=== PATIENT | female | born 1940 | race Caucasian/White ===

== ENCOUNTER → 2019-11-08 | Outpatient (CLI) | payer MEDICARE, OTHER ==
[2019-11-08 13:39] VITALS: BP 121/80; PULSE 94; RESP 16; TEMP 98.5
--- NOTE | 2019-11-08 13:45 | P.PN ---
Subjective Progress Note Date: 11/08/19 Principal diagnosis: Stage 1A left breast cancer Azalea is an 79-year-old white female seen in consultation for Jaleesa Sanchez who on routine screening mammogram performed was noted to have a 7 mm lesion in the upper inner quadrant of the left breast. No lesions of concern were identified in the right breast. The patient subsequently had an ultrasound performed which again confirmed a 7 mm lesion the 9 o'clock position of the left breast. 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 She does not feel any recent masses or nodules in either breast. She is complaining of any nipple discharge or skin change. She's not had any recent trauma or infection of the breast. Many years ago she had a right breast biopsy which was benign. Family history: 1. mother: breast cancer at 89, uterine cancer 2. maternal aunt: breast cancer 60's 3. patient: basal cell cancers resected face and arms 4. brother: basal cell cancer Hormonal History: menarche: 15 , first born at 19, breast fed: yes menopause: 52 BCP: none hormones: < 1 year Surgical History: 1. right breast surgery 2. Scoliosis patient has had multiple back surgeries and has rods in her back/ last 1 year ago May. Medical History: none Social History: smoke: none; used to smoke for 15 years, stopped in 1975 alcohol: occasional wine drugs: none - Constitutional Constitutional: Denies chills, Denies fever - EENT Comment: bilateral cataract surgery Eyes: denies blurred vision, denies pain Ears: deny: decreased hearing, tinnitus Ears, nose, mouth and throat: Denies headache, Denies sore throat - Breasts Breasts: bilateral: as per HPI - Cardiovascular Comment: mitral valve prolapse Cardiovascular: Denies chest pain, Denies shortness of breath - Respiratory Comment: asthma when young not now Respiratory: Denies cough, Denies 7 - Gastrointestinal Gastrointestinal: Denies abdominal pain, Denies diarrhea, Denies nausea, Denies vomiting - Genitourinary (Female) Genitourinary: Denies dysuria, Denies hematuria - Menstruation Menstruation: Reports postmenopausal - Musculoskeletal Comment: back pain, arthritis - Integumentary Comment: sees derrick boat captain, octavio cell canlouann in the past Integumentary: Reports rash - Neurological Neurological: Reports numbness, Denies weakness - Psychiatric Psychiatric: Denies anxiety, Denies depression - Endocrine Endocrine: Denies fatigue, Denies weight change - Hematologic/Lymphatic Comment: none - Allergic/Immunologic Allergic/Immunologic: Reports seasonal allergies Past Medical History History of Any Multi-Drug Resistant Organisms: None Reported Smoking Status: Former smoker Medications and Allergies Home Medications Medication Instructions Recorded Confirmed Type Cyclobenzaprine [Flexeril] 10 mg PO TID 08/02/19 08/02/19 History Etodolac [Lodine] 400 mg PO BID 08/02/19 08/02/19 History Gabapentin [Neurontin] 300 mg PO BID 08/02/19 08/02/19 History Lisinopril [Zestril] 10 mg PO DAILY 08/02/19 08/02/19 History Lovastatin [Mevacor] 20 mg PO HS 08/02/19 08/02/19 History traMADol HCL [Ultram] 50 mg PO Q6HR PRN 08/02/19 08/02/19 History Allergies Allergy/AdvReac Type Severity Reaction Status Date / Time No Known Allergies Allergy Unverified 08/02/19 14:27 Objective - Constitutional General appearance: Present: average body habitus - EENT Eyes: Present: EOMI ENT: Present: hearing grossly normal - Neck Neck: Present: normal ROM - Respiratory Respiratory: bilateral: CTA - Cardiovascular Rhythm: regular Heart sounds: normal: S1, S2 - Gastrointestinal General gastrointestinal: Present: normal bowel sounds, soft - Integumentary Integumentary: Present: normal turgor - Musculoskeletal Musculoskeletal: Present: gait normal - Psychiatric Psychiatric: Present: A&O x's 3 - Additional findings Additional findings: breast exam: BRA: 38 C Inspection: grade 2/3 ptosis, no nipple changes Palpation: right breast: No dominant masses or nodules of concern and multiple positional exam Right axilla: No adenopathy of concern Left breast: Multiple positional exam no dominant masses or nodules of concern Left axilla: No adenopathy of concern Assessment and Plan Assessment: impression: 1. left breast core biopsy stage 1 infiltrating ductal cancer 2. Arthritis/multiple prior back surgeries 3. Family history of breast cancer 4. Personal history of basal cell cancer 5. Scoliosis 6. Small punctate area of erythema inferior aspect of left breast going to follow up with derrick boat captain for this Plan: 1. Left breast needle localization lumpectomy, possible tissue transfer for hypoplastic procedure, possible mastopexy 2. [place] node injection, sentinel node biopsy, possible axillary node dissection left 3. Medical clearance Risks and benefits of surgery were discussed. The choice of lumpectomy versus mastectomy were discussed and the patient would prefer a lumpectomy. [place] node biopsy with possible axillary node dissection was discussed and risks and benefits of this were discussed as well. Risks include but are not limited to bleeding, infection, reaction to the anesthetic. If margins were to be positive or the correct area not completely excised this may necessitate further excision. The risk of having this done during the code 19 pandemic was also discussed the patient understands and wishes to proceed. We have discussed mastectomy plus or minus reconstruction and she is not interested. CC: Yusuf Sanchez encounter 30 minutes > 50% of time in planning and counselling Time with Patient: Greater than 30
== END | disposition home or self-care (01) ==
LOC: WWCWWP 12:58
PROVIDERS: ATTEND Surgery
DX: Z53.9 Procedure and treatment not carried out, unspecified reason (principal)

== ENCOUNTER → 2019-11-16 | Outpatient (CLI) | payer MEDICARE, OTHER | END | disposition home or self-care (01) | LOC: LABWHC1 10:35 | PROVIDERS: ATTEND Surgery | DX: Z11.59 Encounter for screening for other viral diseases (principal) | CPT/HCPCS: 87635 ==

== ENCOUNTER → 2019-11-20 | Day surgery (SDC) | payer MEDICARE, OTHER ==
[2019-11-15 10:37] VITALS: BMI 23.1
[~2019-11-20] MED LIST: ALPRAZolam 0.25 MG TAB PO ONE; DEXAMETHASONE SOD PHOSPHATE 10 MG/ML 1 ML VIAL IV ONE; HEPARIN SODIUM,PORCINE 5,000 UNIT/ML 1 ML VIAL SQ ONE; HYDROmorphone 0.5 MG/0.5 ML SYRINGE IVP ONE; LABETALOL SYRINGE 5 MG/ML IVP ONE; LACTATED RINGERS 1,000 ML IV ONE; LACTATED RINGERS 1,000 ML IV SCH; LIDOCAINE 1% (10MG/ML) FOR IV START INTRADERMA PRN; LIDOCAINE 1% INJ 10MG/ML (20 ML MDV) ONE; LIDOCAINE 1% INJ 10MG/ML (20 ML MDV) SQ ONE; METHYLENE BLUE 50 MG/10 ML AMPUL INJ ONE; MIDAZOLAM 2 MG/2 ML VIAL IV PRN; ONDANSETRON 4 MG/2 ML VIAL IVP ONE; PHENYLEPHRINE-0.9% NACL SYG 1 MG/10 ML SYRINGE ONE; PROPOFOL 10 MG/ML 20 ML VIAL IV ONE; Pre Op ABX Message 1 EACH MISC MISCELLANE ONE; SUCCINYLCHOLINE CHLORIDE 100 MG/5 ML SYR IV ONE; fentaNYL (PF) 50 MCG/ML 2 ML AMP IV PRN; fentaNYL (PF) 50 MCG/ML 2 ML AMP ONE
--- NOTE | 2019-11-20 14:18 | NM ---
EXAMINATION TYPE: NM sentinel node injection DATE OF EXAM: 11/20/2019 COMPARISON: NONE HISTORY: Left breast carcinoma TECHNIQUE AND FINDINGS: The procedure of sentinel lymph node injection was explained to the patient. The benefits, alternatives, and risks were discussed. An informed consent was then obtained. Overlying skin is cleaned with sterile alcohol. 480 uCi Tc 99m Filtered Sulfur Colloid was injected s urrounding the outer upper aspect of the left nipple intradermally. The injection site was left massaged by medical doctor nuclear medicine for 10 minutes after injection. The patient tolerated the procedure well without any immediate complication. The patient was kept in the radiology department for short stay after the procedure and then taken to surgery for surgical procedure what is presumed intraoperative gamma probe will be used for sentinel lymph node detection . IMPRESSION: Left breast radiotracer injection for sentinel node localization as above.
--- NOTE | 2019-11-20 15:04 | MM ---
EXAMINATION TYPE: MG pre op needle loc LT DATE OF EXAM: 11/20/2019 COMPARISON: Mammogram from outside institution dated 06/13/2019 CLINICAL HISTORY: Abnormal mammogram, left breast carcinoma TECHNIQUE: Needle localization with wire placement and surgical excision of area of concern in the left breast. FINDINGS: The procedure of needle localization with wire placement and than surgical excision was explained to the patient. Benefits, alternatives, and risks were discussed. An informed consent was then obtained. The shortest pathway for procedure was chosen. Shortest pathway was mediolateral approach. The overlying skin was prepped and draped in usual sterile fashion. Lidocaine was used as anesthetic into the skin and subcutaneous tissue up to the level of area of concern. A 5 cm needle was used. It was placed via a medial to lateral approach under mammographic guidance. Subsequent 90 degrees mammogram show the needle to be in satisfactory position relative to the targeted area. At this point, wire was placed and the needle was withdrawn. The wire was fixed to patient's skin. Images were marked for surgeon. The patient tolerated the procedure well without any immediate complication. The patient was kept in the radiology department for short stay after the procedure and then taken to surgery for surgical excision. Surgical clip and wire are identified in specimen mammogram. The patient was kept in hospital for short stay after the procedure and then discharged home in stable condition. IMPRESSION: Successful, uncomplicated needle localization with wire placement and surgical excision of surgical clip in the left breast, full pathology results to follow. Pathology Results: Malignant A. LEFT AXILLARY NODE, BIOPSY: Lymph node with partial fat replacement, negative for metastasis. CK7 and MARGIE immunoperoxidase stains are confirmatory (controls appropriate). B. LEFT AXILLARY TISSUE: Benign vascularized fibroadipose tissue. No lymph nodes are identified. C. 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 Surgical margins negative for invasive malignancy. See Surgical Pathology Cancer Case Summary and Comment. Recommendation Surgical consult of the left breast. IRMA
--- NOTE | 2019-11-20 15:18 | P.OP ---
Date of Procedure: 11/20/19 Preoperative Diagnosis: Left breast cancer Postoperative Diagnosis: Same Procedure(s) Performed: Left breast sentinel node biopsy, left axillary node mapping with methylene blue left breast needle localization lumpectomy, oncoplastic tissue transfer Anesthesia: ROSARIOA Surgeon: Kalie Greenfield Estimated Blood Loss (ml): 20 IV fluids (ml): 550 Pathology: other (breast tissue) Condition: stable Disposition: same day Indications for Procedure: Left breast cancer Operative Findings: Fibrofatty breast tissue Description of Procedure: Azalea is an 79-year-old white female who was diagnosed with a left breast invasive ductal carcinoma. Preoperatively the was localized by needle localization and radioactive substance was injected for sentinel node biopsy. She was then brought to the operating room and the left axilla was interrogated with the neoprobe. This did not reveal a strong signal in the axilla and therefore lymphatic mapping via injection of methylene blue was also performed. 3 mL of methylene blue was diluted with an additional 3 mL of D5W. This was then injected in the periareolar area and the breast was massaged. The left breast and axilla were prepped and draped in a sterile fashion. The sentinel node was approached initially. The neoprobe was used to help localize the area of the incision however the signal was not strong. The incision was made and carried into the axillary tissue. A deep lymph node was identified which was blue and was radioactive. 10 second count on the lymph node was 750 and the background count was approximately 32. No other adenopathy of concern was identified. The dissection was performed sharply using the scalpel as well as the Harmonic scalpel. After this had been removed the wound was well irrigated. The deep tissues were closed using 3-0 Vicryl suture. The skin was closed using 4-0 Monocryl. The left breast was then approached.. Periareolar incision was made and carried through the skin and subcutaneous tissue to the area of the breast tissue. Flaps were formed to the area of the needle. Surrounding tissue was dissected up from the needle and was removed. Following this approximately 40 mL; 5 cm x 4 cm both superiorly and inferiorly were mobilized. of tissue was mobilized both superiorly and inferiorly to bring into the defect that was created. The wound was well irrigated. Titanium clips were placed to identify the cavity prior to closure. The specimen was painted for orientation and radiograph revealed the area of concern had been removed. Following this all instrument and sponge counts were correct at the end of the case. The deep tissues were closed from deep to superficial using 3-0 Vicryl suture bringing the mobilized tissue into the cavity. The subcutaneous tissue was closed using 3-0 Vicryl suture. A subcuticular closure was performed with 4-0 Monocryl. 4-0 nylon was used to close the skin. I then all instrument and sponge counts were correct at the end of the case. Patient tolerated the procedure in stable condition.
--- NOTE | 2019-11-20 15:20 | P.DS ---
Providers Attending physician: Kalie Greenfield Primary care physician: Kal Hill Plan - Discharge Summary Discharge Rx Participant: Yes New Discharge Prescriptions: No Action traMADol HCL [Ultram] 50 mg PO BID Lisinopril [Zestril] 20 mg PO HS Cyclobenzaprine [Flexeril] 10 mg PO HS Gabapentin [Neurontin] 300 mg PO BID Etodolac [Lodine] 400 mg PO BID Discharge Medication List Cyclobenzaprine [Flexeril] 10 mg PO HS 08/02/19 [History] Etodolac [Lodine] 400 mg PO BID 08/02/19 [History] Gabapentin [Neurontin] 300 mg PO BID 08/02/19 [History] Lisinopril [Zestril] 20 mg PO HS 08/02/19 [History] traMADol HCL [Ultram] 50 mg PO BID 08/02/19 [History] Follow up Appointment(s)/Referral(s): Kalie Greenfield MD [STAFF PHYSICIAN] - 1 Week Activity/Diet/Wound Care/Special Instructions: do not drive for 24 hours after discharge, or if using narcotic pain medicine may shower after 48 hours wear bra at all times Discharge Disposition: HOME SELF-CARE
[2019-11-20 15:31] VITALS: TEMP 98.1
[2019-11-20 16:42] VITALS: BP 159/72; PULSE 82; RESP 16
--- NOTE | 2019-11-27 07:35 | MM ---
MG Surgical Specimen LT EXAMINATION TYPE: MG pre op needle loc LT DATE OF EXAM: 11/20/2019 COMPARISON: Mammogram from outside institution dated 06/13/2019 CLINICAL HISTORY: Abnormal mammogram, left breast carcinoma TECHNIQUE: Needle localization with wire placement and surgical excision of area of concern in the left breast. FINDINGS: The procedure of needle localization with wire placement and than surgical excision was explained to the patient. Benefits, alternatives, and risks were discussed. An informed consent was then obtained. The shortest pathway for procedure was chosen. Shortest pathway was mediolateral approach. The overlying skin was prepped and draped in usual sterile fashion. Lidocaine was used as anesthetic into the skin and subcutaneous tissue up to the level of area of concern. A 5 cm needle was used. It was placed via a medial to lateral approach under mammographic guidance. Subsequent 90 degrees mammogram show the needle to be in satisfactory position relative to the targeted area. At this point, wire was placed and the needle was withdrawn. The wire was fixed to patient's skin. Images were marked for surgeon. The patient tolerated the procedure well without any immediate complication. The patient was kept in the radiology department for short stay after the procedure and then taken to surgery for surgical excision. Surgical clip and wire are identified in specimen mammogram. The patient was kept in hospital for short stay after the procedure and then discharged home in stable condition. IMPRESSION: Successful, uncomplicated needle localization with wire placement and surgical excision of surgical clip in the left breast, full pathology results to follow. RECOMMENDATION: Surgical consultation of the left breast. IRMA
== END | disposition home or self-care (01) ==
LOC: OR 10:04
PROVIDERS: ATTEND Surgery
DX: C50.912 Malignant neoplasm of unspecified site of left female breast (principal); Z17.0 Estrogen receptor positive status [ER+]; M47.9 Spondylosis, unspecified; M41.9 Scoliosis, unspecified; I10 Essential (primary) hypertension; I34.1 Nonrheumatic mitral (valve) prolapse; Z87.891 Personal history of nicotine dependence; Z97.2 Presence of dental prosthetic device (complete) (partial); Z80.3 Family history of malignant neoplasm of breast; Z80.49 Family history of malignant neoplasm of other genital organs; Z80.8 Family history of malignant neoplasm of other organs or systems; Z85.828 Personal history of other malignant neoplasm of skin; Z79.1 Long term (current) use of non-steroidal anti-inflammatories (NSAID); Z79.899 Other long term (current) drug therapy
CPT/HCPCS: 19301; 38525; 88342; 88307; 88341; 76098; 38792; A9520; J1644; J1100; J2405; J2001; J3010; J2370; J0330; J2704; Q9968; J1170

== ENCOUNTER → 2019-11-29 | Outpatient (CLI) | payer MEDICARE, OTHER ==
[2019-11-29 16:37] VITALS: BP 156/89; PULSE 81; RESP 18; TEMP 98.2
--- NOTE | 2019-11-29 16:57 | P.PN ---
Subjective Progress Note Date: 11/29/19 Principal diagnosis: Azalea is an 79-year-old white female status post left breast lumpectomy and sentinel node biopsy and . Left axillary nodes were negative for cancer, lumpectomy had multifocal invasive lobular carcinoma and extensive lobular carcinoma in situ. Surgical margins were negative for invasive malignancy. The patient has no complaints at this time related to the surgery. Objective - Vital Signs Vital signs: Vital Signs Temp 98.2 F 11/29/19 16:33 Pulse 81 11/29/19 16:33 Resp 18 11/29/19 16:33 BP 156/89 11/29/19 16:33 Pulse Ox 98 11/29/19 16:33 Intake & Output 11/28/19 11/29/19 11/29/19 18:59 06:59 18:59 Weight 68.039 kg - Exam BMI 23.1 - Constitutional General appearance: Present: average body habitus - EENT Eyes: Present: EOMI ENT: Present: hearing grossly normal - Respiratory Respiratory: bilateral: CTA - Cardiovascular Rhythm: regular Heart sounds: normal: S1, S2 - Integumentary Integumentary Comment(s): incision clean and dry, no infection or hematoma - Musculoskeletal Musculoskeletal: Present: gait normal - Psychiatric Psychiatric: Present: A&O x's 3, appropriate affect, intact judgment & insight Assessment and Plan Assessment: Impression: 1. Postop left breast lumpectomy and sentinel node biopsy 2. The patient's initial biopsy was DCIS and the patient on resection was invasive lobular carcinoma with LCIS this will be reviewed with pathology Plan: 1. Suture removal 2. appointment with medical oncology 4. re-presentation of case at tumor board 5. Follow-up here in 3 months CC: Jaleesa Sanchez
--- NOTE | 2019-12-04 08:29 | P.PN ---
Progress Note - Text Progress Note Date: 12/04/19 Azalea's case was presented at tumor board today the pathology was reviewed. Medical oncology has recommended she receive an aromatase inhibitor and plus or minus radiation recommendation. At this time it was not recommended that she undergo further surgery. She will follow closely. I tried to call the patient with this information she is not answered her family have left a message for her to contact us.
== END | disposition home or self-care (01) ==
LOC: WWCWWP 15:41
PROVIDERS: ATTEND Surgery
DX: Z53.9 Procedure and treatment not carried out, unspecified reason (principal)

== ENCOUNTER → 2019-12-14 | Outpatient (CLI) | payer MEDICARE, OTHER ==
[2019-12-14 12:56] VITALS: BP 125/77; PULSE 94; RESP 20; TEMP 99.4
--- NOTE | 2019-12-14 13:39 | P.PN ---
Subjective Progress Note Date: 12/14/19 Principal diagnosis: left breast multifocal invasive lobular cancer Azalea is an 79-year-old white female status post left breast partial mastectomy [place] [id number]. Pathology post procedure revealed multifocal invasive lobular cancer and extensive lobular carcinoma in situ. Surgical margins were negative for invasive malignancy. The lymph node was negative for tumor. The greatest tumor size was 11 mm. Her case was presented at tumor board and it was recommended that she have an aromatase inhibitor and that radiation therapy be given. The patient does not want to have radiation therapy, and the patient is concerned about using an aromatase inhibitor. She has degenerative disc disease and is concerned about osteopenia/osteoporosis. She met with medical oncology and at this time is opted not to use an aromatase inhibitor or tamoxifen. Additionally she does not want any radiation therapy. After discussion she wishes to have the left breast removed. Postprocedure she did well however she does have some mild swelling in the med ial aspect of the left breast with some mild erythema. Her incision is clean and dry Family history: 1. Mother: Breast cancer at 89, uterine cancer 2. Maternal aunt: Breast cancer in her 60s 3. Patient basal cell cancers resected face and arms/left breast lobular carcinoma in situ as well as multifocal invasive lobular carcinoma 4. Brother: Basal cell cancer Hormonal history: Menarche: 15 , first at 19, press-fit: Yes Menopause: 51 control pills: None Hormones: Less than 1 year Surgical history: 1. Right breast surgery 2. Scoliosis patient has had multiple back surgeries and rods in her back 3. 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 basal cell cancer in the past Neurologic: Negative Psychiatric: Negative Endocrine: Negative Objective - Vital Signs Vital signs: Vital Signs Temp 99.4 F 12/14/19 12:50 Pulse 94 12/14/19 12:50 Resp 20 12/14/19 12:50 BP 125/77 12/14/19 12:50 Pulse Ox 96 12/14/19 12:50 Intake & Output 12/13/19 12/14/19 12/14/19 18:59 06:59 18:59 Weight 69.4 kg - Exam BMI 24.1 - Constitutional General appearance: Present: average body habitus - EENT Eyes: Present: EOMI ENT: Present: hearing grossly normal - Neck Neck: Present: normal ROM - Respiratory Respiratory: bilateral: CTA - Cardiovascular Rhythm: regular Heart sounds: normal: S1, S2 - Gastrointestinal General gastrointestinal: Present: normal bowel sounds, soft - Integumentary Integumentary Comment(s): well healed scar left breast - Musculoskeletal Musculoskeletal Comment(s): uses cane - Psychiatric Psychiatric: Present: A&O x's 3, appropriate affect, intact judgment & insight - Additional findings Additional findings: breast exam: BRA: 38C inspection: well healed scar left breast Patient Right breast: Positional exam no dominant masses or nodules of concern Right axilla: No adenopathy of concern left breast: Multiple position on exam well-healed scar from prior surgery/phallus medial aspect of the breast with some erythema possible fat necrosis versus beginning of abscess Left axilla: No adenopathy of concern Assessment and Plan Assessment: Impression: 1. Stage I a left breast invasive lobular carcinoma/multifocal, as well as extensive lobular carcinoma in situ 2. Mild erythema medial aspect of left breast with some swelling/possible fat necrosis 3. Fibrocystic breast changes 4. Degenerative disc disease Plan: 1. Left simple mastectomy 2. medical clearance Azalea understands the risks and benefits of the lobulated carcinoma multifocal in the left breast. She does not wish to take an aromatase inhibitor or tamoxifen. Additionally she does not want any radiation therapy. We have talked about watchful waiting and she is concerned and would rather have the breast removed. We have talked about the fact that we could remove the breast in this possible that we would not see any residual cancer she understands this and yet wishes to proceed with having a breast removed. We have also discussed the risk of cancer in the right breast and at this time she wants to be followed conservatively for the right side. This and benefits were discussed with the patient including bleeding, infection, and possible reaction to the anesthetic. She understands and wishes to proceed. CC: DR. Jesus encounter 45 minutes, > 50% of time spent in planning and counselling
== END | disposition home or self-care (01) ==
LOC: WWCWWP 12:40
PROVIDERS: ATTEND Surgery
DX: Z53.9 Procedure and treatment not carried out, unspecified reason (principal)

== ENCOUNTER → 2019-12-21 | Outpatient (CLI) | payer MEDICARE, OTHER ==
[2019-12-21 13:05] VITALS: BP 128/88; PULSE 94; RESP 18; TEMP 98.4
--- NOTE | 2019-12-21 13:22 | P.PN ---
Progress Note - Text Progress Note Date: 12/21/19 Azalea was seen last week status post left breast partial mastectomy and sentinel node biopsy and [id number]. Her pathology revealed multifocal invasive lobular cancer and extensive lobular carcinoma in situ. She has opted for a left breast simple mastectomy. She does not want to take an aromatase inhibitor and she does not want to take to have any radiation therapy. He was given a course of antibiotics last week for some mild erythema in the upper inner aspect of the left breast. The erythema has remained persistent but she has no fever or chills. I suspect this may be related to it does not appear to be an infection. Physical exam: Lungs: Clear Heart: Regular rate and rhythm Left breast incision clean and dry, mild erythema upper inner aspect of the breast Impression: 1. Stage IA left breast invasive lobular carcinoma/multifocal as well as extensive lobular carcinoma in situ 2. Mild erythema medial aspect of the left breast which may be related to some possible underlying fat necrosis 3. Fibrocystic breast changes 4. Degenerative disc disease We have talked about treatment options again and she has opted not to use an aromatase inhibitor, and she does not want to have radiation therapy. We have talked about watchful observation of the left breast and she does not want to do this either. She would prefer to have a left simple mastectomy. She understands we may not find any additional tumor in the breast and wishes to proceed. Plan: 1. Simple mastectomy on the left 2. Medical clearance encounter 15 minutes, > 50% of time in planning and counselling
== END | disposition home or self-care (01) ==
LOC: WWCWWP 12:39
PROVIDERS: ATTEND Surgery
DX: Z53.9 Procedure and treatment not carried out, unspecified reason (principal)

== ENCOUNTER 2020-02-12 06:54 | Day surgery (SDC) | payer MEDICARE, OTHER ==
[2020-02-05 14:10] VITALS: BMI 24.2
[~2020-02-12 06:54] MED LIST changes: -ALPRAZolam 0.25 MG TAB PO ONE; -HYDROmorphone 0.5 MG/0.5 ML SYRINGE IVP ONE; +HYDROmorphone 0.5 MG/0.5 ML SYRINGE IVP PRN; -LABETALOL SYRINGE 5 MG/ML IVP ONE; -LACTATED RINGERS 1,000 ML IV ONE; -LACTATED RINGERS 1,000 ML IV SCH; -LIDOCAINE 1% INJ 10MG/ML (20 ML MDV) ONE; -LIDOCAINE 1% INJ 10MG/ML (20 ML MDV) SQ ONE; -METHYLENE BLUE 50 MG/10 ML AMPUL INJ ONE; -PHENYLEPHRINE-0.9% NACL SYG 1 MG/10 ML SYRINGE ONE; -PROPOFOL 10 MG/ML 20 ML VIAL IV ONE; -SUCCINYLCHOLINE CHLORIDE 100 MG/5 ML SYR IV ONE; -fentaNYL (PF) 50 MCG/ML 2 ML AMP IV PRN; -fentaNYL (PF) 50 MCG/ML 2 ML AMP ONE
[2020-02-12] MEDS ORDERED: ONDANSETRON 4 MG/2 ML VIAL ONE (07:58)
[2020-02-12] MEDS: LACTATED RINGERS 1,000 ML IV SCH ×2 (08:00→23:48)
[2020-02-12] MEDS ORDERED: HEPARIN SODIUM,PORCINE 5,000 UNIT/ML 1 ML VIAL ONE (08:25)
--- NOTE | 2020-02-12 08:45 | P.NAPBC ---
NAPBC Queries - NAPBC Queries Was patient's case review presented at [facility] tumor board? If no, comment.: Yes Was patient's pathology reviewed at [facility]? If no, comment.: Yes Was breast conservation surgery offered? If no, comment.: Yes Was sentinel node biopsy offered? If no, comment.: Yes (done) Was diagnosis confirmed by percutaneous core biopsy? If no, comment.: Yes Is patient mastectomy patient?: Yes Was a preop referral to reconstructive surgeon offered?: Yes Clinical Stage: stage IA
[2020-02-12] MEDS ORDERED: LIDOCAINE 1% INJ 10MG/ML (20 ML MDV) ONE (09:02)
[2020-02-12] MEDS ORDERED: PROPOFOL 10 MG/ML 20 ML VIAL IV ONE (09:02)
[2020-02-12] MEDS ORDERED: fentaNYL (PF) 50 MCG/ML 2 ML AMP ONE (09:02)
[2020-02-12] MEDS ORDERED: ACETAMINOPHEN IV (For NPO) 1,000 MG/100 ML VIAL ONE (09:02)
[2020-02-12] MEDS ORDERED: LACTATED RINGERS 1,000 ML IV ONE (10:57)
[2020-02-12] MEDS ORDERED: ONDANSETRON 4 MG/2 ML VIAL IVP PRN (11:03)
[2020-02-12] MEDS ORDERED: HYDROmorphone 1 MG/ML 1 ML SYRINGE IVP PRN (11:03)
[2020-02-12] MEDS ORDERED: NALOXONE 0.4 MG/ML 1 ML VIAL IV PRN (11:03)
--- NOTE | 2020-02-12 11:03 | P.OP ---
Date of Procedure: 02/12/20 Preoperative Diagnosis: Left breast multifocal invasive lobular carcinoma, lobular carcinoma in situ Postoperative Diagnosis: Same Procedure(s) Performed: Left breast simple mastectomy Anesthesia: ROSARIOA Surgeon: Kalie Greenfield Estimated Blood Loss (ml): 30 IV fluids (ml): 850 Pathology: other (Left breast) Condition: stable Disposition: same day Indications for Procedure: Left breast multifocal invasive lobular carcinoma, patient given option of aromatase inhibitor, radiation therapy, and surveillance but declined, patient also given option of reconstruction and declined Operative Findings: Fibrofatty breast tissue Description of Procedure: The patient is an 79-year-old white female who underwent a lumpectomy of the left breast and sentinel node biopsy. We will revealed multifocal invasive lobular carcinoma. The patient opted for mastectomy. The patient was taken to the operating room and following induction of anesthesia the left breast was prepped and draped in a sterile fashion. Markings were made for superior and inferior skin incisions. A skin incision was made and carried through the skin and subcutaneous tissue. The superior flap was developed first. The flap was developed in the plane between the subcutaneous tissue and the breast tissue. This was developed down to the pectoralis major muscle superiorly. Following this the inferior incision was made. Again a posterior flap was divided down to to the muscle of the anterior chest wall in the plane between the subcutaneous tissue and the breast tissue. The breast was removed from medial to lateral being careful to maintain hemostasis using the electrocautery device. Additionally the Harmonic Scalpel was utilized, and several small vessels were oversewn using a 3-0 Vicryl suture. The breast was dissected to the lateral border of the pectoralis muscle and the breast was then removed. The wound was well irrigated. After assured that hemostasis was attained Surgicel and pelvis was placed. A #10 drain was placed. The subcutaneous tissues were closed using running 3-0 Vicryl suture. This was followed by a 4-0 Monocryl. The skin was then further reapproximated using joel. The drain was secured with a 3-0 nylon suture. The patient tolerated the procedure in stable condition. All instrument and sponge counts were correct at the end of the case.
[2020-02-12] MEDS: traMADol 50 MG TAB PO PRN ×2 (13:00→20:48)
--- NOTE | 2020-02-12 13:27 | P.CONS ---
History of Present Illness - History of Present Illness This is a pleasant 7 years old female with past medical history of hypertension and osteoarthritis, she was diagnosed with left-sided breast cancer about 3 months ago. She follows up with Dr. Hill and his nurse practitioner. She was admitted today electively for left mastectomy which she opted for given her age. Review of Systems CONSTITUTIONAL: No fever, no malaise, no fatigue. HEENT: No recent visual problems or hearing problems. Denied any sore throat. CARDIOVASCULAR: No orthopnea, PND, no palpitations, no syncope. PULMONARY: No shortness of breath, no cough, no hemoptysis. GASTROINTESTINAL: No diarrhea, no nausea, no vomiting, no abdominal pain. Normoactive bowel sounds. NEUROLOGICAL: No headaches, no weakness, no numbness. HEMATOLOGICAL: Denies any bleeding or petechiae. GENITOURINARY: Denies any burning micturition, frequency, or urgency. MUSCULOSKELETAL/RHEUMATOLOGICAL: Denies any joint pain, swelling, or any muscle pain. ENDOCRINE: Denies any polyuria or polydipsia. Past Medical History Past Medical History: Cancer, Hypertension, Osteoarthritis (OA) Additional Past Medical History / Comment(s): HX OF BACK SURGERIES WITH BACK PAIN. -USES CANE, HX OF BASAL CELL CANCER, NEW DIAGNOSIS OF LEFT BREAST CANCER. History of Any Multi-Drug Resistant Organisms: None Reported Past Surgical History: Back Surgery Additional Past Surgical History / Comment(s): BACK SURGERY X6- HAS RODS (2018) Past Anesthesia/Blood Transfusion Reactions: Previous Problems w/ Anesthesia, Family History of Problems w/ Anesthesia Additional Past Anesthesia/Blood Transfusion Reaction / Comm: STATES DIFFICULTY WAKING UP- THEY TRIED DIFFERENT MEDS TO REVERSE ANESTHESIA. PATIENT STATES HER MOTHER ALSO HAD DIFFICULTY WAKING UP. Past Psychological History: No Psychological Hx Reported Additional Psychological History / Comment(s): PTS SPOUSE PASSED THIS MONTH (OCTOBER 2019) Smoking Status: Former smoker Past Alcohol Use History: Occasional Additional Past Alcohol Use History / Comment(s): QUIT SMOKING 1977, SMOKED 2 CIGARETTES /DAY, STARTED SMOKING AGE 15. Past Drug Use History: None Reported - Past Family History Mother Family Medical History: Cancer, Pulmonary Embolus Additional Family Medical History / Comment(s): BREAST AND UTERINE CANCER Medications and Allergies Home Medications Medication Instructions Recorded Confirmed Type Cyclobenzaprine [Flexeril] 10 mg PO HS 08/02/19 02/05/20 History Etodolac [Lodine] 400 mg PO BID 08/02/19 02/05/20 History Gabapentin [Neurontin] 300 mg PO BID 08/02/19 02/05/20 History lisinopriL [Zestril] 20 mg PO HS 08/02/19 02/05/20 History traMADol HCL [Ultram] 50 mg PO BID 08/02/19 02/05/20 History Allergies Allergy/AdvReac Type Severity Reaction Status Date / Time No Known Allergies Allergy Unverified 02/05/20 14:04 Physical Exam Vitals: Vital Signs Temp Pulse Pulse Resp BP Pulse Ox 02/12/20 11:45 85 16 168/94 100 02/12/20 11:43 169/96 02/12/20 11:31 78 16 177/99 100 02/12/20 11:17 158/97 02/12/20 11:16 80 16 161/100 100 02/12/20 11:06 97.5 F L 84 14 177/99 94 L 02/12/20 07:52 97.1 F L 86 20 165/79 97 Intake and Output 02/11/20 02/12/20 02/12/20 22:59 06:59 14:59 Intake Total 850 Output Total 30 Balance 820 Intake: IV 850 Output: Estimated Blood Loss 30 Other: Weight 69.8 kg GENERAL: The patient is alert and oriented x3, not in any acute distress. Well developed, well nourished. HEENT: Pupils are round and equally reacting to light. EOMI. No scleral icterus. No conjunctival pallor. Normocephalic, atraumatic. No pharyngeal erythema. No thyromegaly. CARDIOVASCULAR: S1 and S2 present. No murmurs, rubs, or gallops. -PULMONARY: Chest is clear to auscultation, no wheezing or crackles. Left side surgical wound does examine, dressing is in place with wound to drain, rest of exam is deferred to the surgical team ABDOMEN: Soft, nontender, nondistended, normoactive bowel sounds. No palpable organomegaly. MUSCULOSKELETAL: No joint swelling or deformity. EXTREMITIES: No cyanosis, clubbing, or pedal edema. NEUROLOGICAL: Gross neurological examination did not reveal any focal deficits. SKIN: No rashes. No petechiae Assessment and Plan Assessment: Left breast multifocal invasive lobular carcinoma and lobular carcinoma in situ status post left breast simple mastectomy Hypertension Osteoarthritis Plan: This is a pleasant 79 years old female who presents for elective left mastectomy given her invasive lobular carcinoma and low blood carcinoma in situ, continue with pain management. Resume antihypertensive. Consult oncology team Labs and medication were reviewed.. Continue same treatment. Continue with symptomatic treatment. Resume home medication. Monitor lytes and vitals. DVT and GI prophylaxis. Further recommendations of the clinical course of the patient DVT prophylaxis: Subcutaneous heparin GI Prophylaxis: Minal Thank you for consulting us
[2020-02-12] MEDS: DEXTROSE 5%-0.45% NACL 1,000 ML IV SCH (15:29)
[2020-02-12] MEDS: HEPARIN SODIUM,PORCINE 5,000 UNIT/ML 1 ML VIAL SQ SCH ×2 (16:19→23:19)
[2020-02-12] MEDS: GABAPENTIN 300 MG CAP PO SCH (20:48)
[2020-02-12] MEDS ORDERED: lisinopriL 20 MG TAB PO SCH (21:00)
--- NOTE | 2020-02-12 22:25 | P.CONS ---
History of Present Illness - Reason for Consult Consult date: 02/12/20 Breast Cancer status post mastectomy Requesting physician: Gonzalo Churchill - Chief Complaint Elective surgery - History of Present Illness Ms Rod is a pleasant postmenopausal white female, who was found on routine screening mammogram done in 06/14, to have a 7 mm lesion in the upper inner quadrant of the left breast. She had an ultrasound performed which confirmed the presence of a 7 mm lesion in the 9 o'clock position. 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 [place] and [place] were both positive with HER-2/aby negative. The patient had a lumpectomy on 11/20/19 with needle localization. She also has sentinel lymph node dissection. Pathology revealed multifocal invasive lobular cancer, as well as extensive lobular neoplasia (ALH/LCIS). There were at least 3 foci of invasive cancer. Largest focus was 1.1 cm. One sentinel node was negative. Closest margin was the anterior 1, less than 1 mm but negative. She followed up with Dr. Lindsey and the options of radiation versus Mastectomy plus 5 years hormonal therapy with AI. Patient at that time elected radiation although she further discussed with family and decided to move forward with Mstectomy alone. She states she will forgo radiation and hormonal therapy due to side effects and her age. Review of Systems All systems: negative (HPI) Past Medical History Past Medical History: Cancer, Hypertension, Osteoarthritis (OA) Additional Past Medical History / Comment(s): HX OF BACK SURGERIES WITH BACK PAIN. -USES CANE, HX OF BASAL CELL CANCER, NEW DIAGNOSIS OF LEFT BREAST CANCER. History of Any Multi-Drug Resistant Organisms: None Reported Past Surgical History: Back Surgery Additional Past Surgical History / Comment(s): BACK SURGERY X6- HAS RODS (2018) Past Anesthesia/Blood Transfusion Reactions: Previous Problems w/ Anesthesia, Family History of Problems w/ Anesthesia Additional Past Anesthesia/Blood Transfusion Reaction / Comm: STATES DIFFICULTY WAKING UP- THEY TRIED DIFFERENT MEDS TO REVERSE ANESTHESIA. PATIENT STATES HER MOTHER ALSO HAD DIFFICULTY WAKING UP. Past Psychological History: No Psychological Hx Reported Additional Psychological History / Comment(s): PTS SPOUSE PASSED THIS MONTH (OCTOBER 2019) Smoking Status: Former smoker Past Alcohol Use History: Occasional Additional Past Alcohol Use History / Comment(s): QUIT SMOKING 1977, SMOKED 2 CIGARETTES /DAY, STARTED SMOKING AGE 15. Past Drug Use History: None Reported - Past Family History Mother Family Medical History: Cancer, Pulmonary Embolus Additional Family Medical History / Comment(s): BREAST AND UTERINE CANCER Medications and Allergies Home Medications Medication Instructions Recorded Confirmed Type Cyclobenzaprine [Flexeril] 10 mg PO HS 08/02/19 02/05/20 History Etodolac [Lodine] 400 mg PO BID 08/02/19 02/05/20 History Gabapentin [Neurontin] 300 mg PO BID 08/02/19 02/05/20 History lisinopriL [Zestril] 20 mg PO HS 08/02/19 02/05/20 History traMADol HCL [Ultram] 50 mg PO BID 08/02/19 02/05/20 History Allergies Allergy/AdvReac Type Severity Reaction Status Date / Time No Known Allergies Allergy Unverified 02/05/20 14:04 Physical Exam Vitals: Vital Signs Temp Pulse Pulse Pulse Resp BP Pulse Ox 02/12/20 20:25 98.6 F 94 16 138/79 94 L 02/12/20 15:42 98.1 F 94 18 130/86 97 02/12/20 14:05 93 16 146/90 98 02/12/20 13:35 85 16 160/89 99 02/12/20 13:05 86 16 156/93 98 02/12/20 12:50 87 16 169/97 99 02/12/20 12:35 85 16 168/104 98 02/12/20 12:20 98 F 86 16 151/91 93 L 02/12/20 11:45 85 16 168/94 100 02/12/20 11:43 169/96 02/12/20 11:31 78 16 177/99 100 02/12/20 11:17 158/97 02/12/20 11:16 80 16 161/100 100 02/12/20 11:06 97.5 F L 84 14 177/99 94 L 02/12/20 07:52 97.1 F L 86 20 165/79 97 Intake and Output 02/12/20 02/12/20 02/12/20 06:59 14:59 22:59 Intake Total 850 Output Total 540 1225 Balance 310 -1225 Intake: IV 850 Output: Drainage 10 Left Chest 10 Urine 500 1225 Estimated Blood Loss 30 Other: # Voids 2 Weight 69.8 kg - Constitutional General appearance: cooperative, no acute distress - EENT Eyes: EOMI, PERRLA ENT: hard of hearing, NA/AT, normal oropharynx - Neck Neck: normal ROM - Respiratory Respiratory: bilateral: CTA - Cardiovascular Rhythm: regular Heart sounds: normal: S1, S2 - Gastrointestinal General gastrointestinal: normal bowel sounds, soft - Integumentary Evidence of left mastecomy Drain tube, Incision looks CDI Integumentary: pale - Neurologic Neurologic: CNII-XII intact - Musculoskeletal Musculoskeletal: generalized weakness - Psychiatric Psychiatric: A&O x's 3, appropriate affect, intact judgment & insight Assessment and Plan Plan: Assessment and Recommendations: Recent Left Breast Cancer: - Details in HPI - Patient has decided to move forward with mastectomy and forgo AI and radiation treatment - Offered follow-up post operatively if she would like to further consider AI as it is recommended. - Education and support provided all questions answered to best of my ability. Thank you for allowing us to participate in the care of this patient.
[2020-02-13] MEDS: DEXTROSE 5%-0.45% NACL 1,000 ML IV SCH ×2 (05:02→14:00)
[2020-02-13 07:39] LABS: Albumin 3.4 g/dL (3.5-5.0); Potassium 4.2 mmol/L (3.5-5.1); Total Protein 6.5 g/dL (6.3-8.2)
[2020-02-13 07:40] LABS: Calcium 8.3 mg/dL (8.4-10.2); Total Bilirubin 0.5 mg/dL (0.2-1.3)
[2020-02-13 07:43] LABS: Basophils % (A) 0 %; Eosinophils % (A) 0 %; HCT 40.3 % (34.0-46.0); HGB 12.4 gm/dL (11.4-16.0); Hypochromasia Slight; Lymphocytes # (A) 1.6 k/uL (1.0-4.8); Lymphocytes % (A) 17 %; MCH 31.8 pg (25.0-35.0); MCHC 30.7 g/dL (31.0-37.0); MCV 103.6 fL (80.0-100.0); Macrocytosis Slight; Mean Platelet Volume 8.7; Monocytes # (A) 0.7 k/uL (0-1.0); Monocytes % (A) 7 %; Neutrophils # (A) 6.7 k/uL (1.3-7.7); Neutrophils % (A) 72 %; Platelet Count 190 k/uL (150-450); RBC 3.89 m/uL (3.80-5.40); RDW 13.3 % (11.5-15.5); WBC 9.3 k/uL (3.8-10.6)
[2020-02-13] MEDS: HEPARIN SODIUM,PORCINE 5,000 UNIT/ML 1 ML VIAL SQ SCH ×2 (09:52→16:45)
[2020-02-13] MEDS: traMADol 50 MG TAB PO PRN ×2 (09:53→16:17)
[2020-02-13] MEDS: GABAPENTIN 300 MG CAP PO SCH (09:53)
--- NOTE | 2020-02-13 12:57 | P.PN ---
Subjective Progress Note Date: 02/13/20 Principal diagnosis: Postop day #1 left breast mastectomy for multifocal lobular carcinoma The patient is an 79-year-old white female who underwent a left breast mastectomy on . Postoperatively she has no complaints. She has been hemodynamically stable. Her hemoglobin this morning is 12.4. Objective - Vital Signs Vital signs: Vital Signs Temp 98.2 F 02/13/20 10:03 Pulse 75 02/13/20 10:03 Resp 18 02/13/20 10:03 BP 144/70 02/13/20 10:03 Pulse Ox 95 02/13/20 10:03 Intake & Output 02/12/20 02/13/20 02/13/20 18:59 06:59 18:59 Intake Total 850 Output Total 1040 730 20 Balance -190 0 -20 Weight 69.8 kg Intake: IV 850 Output: Drainage 10 5 20 Left Chest 10 5 20 Urine 1000 725 Estimated Blood Loss 30 Other: # Voids 2 2 1 - Constitutional General appearance: Present: average body habitus - EENT Eyes: Present: EOMI - Neck Neck: Present: normal ROM - Respiratory Respiratory: bilateral: CTA - Cardiovascular Heart sounds: normal: S1, S2 - Integumentary Integumentary Comment(s): Incision left chest wall clean and dry no evidence of infection There appears to be a seroma under the mastectomy flap - Labs CBC & Chem 7: 02/13/20 07:16 02/13/20 07:16 Labs: Abnormal Lab Results - Last 24 Hours (Table) 02/13/20 02/13/20 Range/Units 07:16 07:16 MCV 103.6 H (80.0-100.0) fL MCHC 30.7 L (31.0-37.0) g/dL Glucose 167 H (74-99) mg/dL Calcium 8.3 L (8.4-10.2) mg/dL Albumin 3.4 L (3.5-5.0) g/dL Assessment and Plan Assessment: Impression: 1. Postop day #1 left breast mastectomy 2. Hemodynamically stable 3. Questionable seroma under the mastectomy flap (the ONEL drain was milked and pressure was applied to the flap and approximately 105 mL of dark serous fluid was removed. This resulted in the flap appearing to the chest wall) Plan: 1. Close surveillance to assure that the seroma does not reform 2. Probable discharge later today
[2020-02-13 16:31] VITALS: BP 149/81; PULSE 79; RESP 16; TEMP 98.3
--- NOTE | 2020-02-13 16:31 | P.DS ---
Providers Date of admission: 02-12-20 Attending physician: Kalie Greenfield Consults: 02/12/20 11:06 Consult Physician Routine Consulting Provider: Andrew Christian Consult Reason/Comments: medical managment Do you want consulting provider notified?: Yes 02/12/20 13:26 Consult Physician Routine Consulting Provider: Johny Lindsey Consult Reason/Comments: Multifocal invasive left breast cancer status post mastectomy Do you want consulting provider notified?: Yes Primary care physician: Kal Hill [facility] Course: Azalea is an 79-year-old white female status post left mastectomy. She is postop day #1. She was initially seen on rounds she was noted to have some fluctuance under the flap her drain was stripped and the flap adhered well to the chest wall. Since that time she has had serous output from the drain which is not worrisome and the flap remained secured to the chest wall. She has no complaints and is ready for discharge. Procedures: left mastectomy POD #1 Plan - Discharge Summary Discharge Rx Participant: No New Discharge Prescriptions: No Action traMADol HCL [Ultram] 50 mg PO BID lisinopriL [Zestril] 20 mg PO HS Cyclobenzaprine [Flexeril] 10 mg PO HS Gabapentin [Neurontin] 300 mg PO BID Etodolac [Lodine] 400 mg PO BID Discharge Medication List Cyclobenzaprine [Flexeril] 10 mg PO HS 08/02/19 [History] Etodolac [Lodine] 400 mg PO BID 08/02/19 [History] Gabapentin [Neurontin] 300 mg PO BID 08/02/19 [History] lisinopriL [Zestril] 20 mg PO HS 08/02/19 [History] traMADol HCL [Ultram] 50 mg PO BID 08/02/19 [History] Follow up Appointment(s)/Referral(s): Johny Lindsey MD [STAFF PHYSICIAN] - 2 Weeks Kalie Greenfield MD [STAFF PHYSICIAN] - 02/28/20 Kal Hill MD [Primary Care Provider] - 1 Week Activity/Diet/Wound Care/Special Instructions: Mastectomy bra/prosthetic bra. Call ahead for appointment: [facility] [phone] *[place] [phone] Discharge Disposition: HOME SELF-CARE
--- NOTE | 2020-02-13 23:20 | P.PN ---
Subjective This is a pleasant 7 years old female with past medical history of hypertension and osteoarthritis, she was diagnosed with left-sided breast cancer about 3 months ago. She follows up with Dr. Hill and his nurse practitioner. She was admitted today electively for left mastectomy which she opted for given her age. 02/13/2020 Patient is doing well with no complication, no pain, she looks pleasant and vitals and labs reviewed Patient has been evaluated by oncology team, however when I discussed with the patient looks like she does not want to follow up with oncology team although I encouraged her as per my discussion with oncology team they might prescribe her hormonal therapy however patient is not interested with hormonal therapy for p ossible side effects for example osteoporosis, also she does not want other therapies despite my instructions. Other than that the patient looks his stable Objective - Vital Signs Vital signs: Vital Signs Temp 98.2 F 02/13/20 12:53 Pulse 76 02/13/20 12:53 Resp 20 02/13/20 12:53 BP 126/80 02/13/20 12:53 Pulse Ox 98 02/13/20 12:53 Intake & Output 02/12/20 02/13/20 02/13/20 18:59 06:59 18:59 Intake Total 850 Output Total 1040 730 150 Balance -190 -730 -150 Weight 69.8 kg Intake: IV 850 Output: Drainage 10 5 150 Left Chest 10 5 150 Urine 1000 725 Estimated Blood Loss 30 Other: # Voids 2 2 1 - Exam GENERAL: The patient is alert and oriented x3, not in any acute distress. Well developed, well nourished. HEENT: Pupils are round and equally reacting to light. EOMI. No scleral icterus. No conjunctival pallor. Normocephalic, atraumatic. No pharyngeal erythema. No thyromegaly. CARDIOVASCULAR: S1 and S2 present. No murmurs, rubs, or gallops. -PULMONARY: Chest is clear to auscultation, no wheezing or crackles. Left side surgical wound does examine, dressing is in place with wound to drain, rest of exam is deferred to the surgical team ABDOMEN: Soft, nontender, nondistended, normoactive bowel sounds. No palpable organomegaly. MUSCULOSKELETAL: No joint swelling or deformity. EXTREMITIES: No cyanosis, clubbing, or pedal edema. NEUROLOGICAL: Gross neurological examination did not reveal any focal deficits. SKIN: No rashes. No petechiae - Labs CBC & Chem 7: 02/13/20 07:16 02/13/20 07:16 Labs: Abnormal Lab Results - Last 24 Hours (Table) 02/13/20 02/13/20 Range/Units 07:16 07:16 MCV 103.6 H (80.0-100.0) fL MCHC 30.7 L (31.0-37.0) g/dL Glucose 167 H (74-99) mg/dL Calcium 8.3 L (8.4-10.2) mg/dL Albumin 3.4 L (3.5-5.0) g/dL Assessment and Plan Assessment: Left breast multifocal invasive lobular carcinoma and lobular carcinoma in situ status post left breast simple mastectomy Hypertension Osteoarthritis Plan: This is a pleasant 79 years old female who presents for elective left mastectomy given her invasive lobular carcinoma and low blood carcinoma in situ, continue with pain management. Resume antihypertensive. Consult oncology team Labs and medication were reviewed.. Continue same treatment. Continue with symptomatic treatment. Resume home medication. Monitor lytes and vitals. DVT and GI prophylaxis. Further recommendations of the clinical course of the patient DVT prophylaxis: Subcutaneous heparin GI Prophylaxis: Minal Thank you for consulting us
== END 2020-02-13 18:06 | disposition home or self-care (01) ==
LOC: OR 06:54 → 6NMEDSUR 11:10 → 6PED 02-13 10:54 → OR 02-13 18:06
PROVIDERS: ATTEND Surgery
DX: D05.02 Lobular carcinoma in situ of left breast (principal); E78.2 Mixed hyperlipidemia; M41.9 Scoliosis, unspecified; J45.909 Unspecified asthma, uncomplicated; Z85.828 Personal history of other malignant neoplasm of skin; I10 Essential (primary) hypertension; Z78.0 Asymptomatic menopausal state; M19.90 Unspecified osteoarthritis, unspecified site; G89.4 Chronic pain syndrome; E78.00 Pure hypercholesterolemia, unspecified; G62.9 Polyneuropathy, unspecified; F41.8 Other specified anxiety disorders; Z63.4 Disappearance and death of family member; I05.9 Rheumatic mitral valve disease, unspecified; Z98.1 Arthrodesis status; Z98.42 Cataract extraction status, left eye; Z98.41 Cataract extraction status, right eye; Z81.1 Family history of alcohol abuse and dependence; Z83.3 Family history of diabetes mellitus; Z87.891 Personal history of nicotine dependence; Z80.3 Family history of malignant neoplasm of breast; Z80.8 Family history of malignant neoplasm of other organs or systems; Z80.49 Family history of malignant neoplasm of other genital organs; Z82.49 Family history of ischemic heart disease and other diseases of the circulatory system; Z79.1 Long term (current) use of non-steroidal anti-inflammatories (NSAID); Z79.891 Long term (current) use of opiate analgesic; Z79.899 Other long term (current) drug therapy; Z91.048 Other nonmedicinal substance allergy status
CPT/HCPCS: 19303; 80053; 85025; J1644 ×2; J1100; J2405; J2001; J3010; J0131; J2704; J1170; 88307

== ENCOUNTER → 2020-02-28 | Outpatient (CLI) | payer MEDICARE, OTHER ==
[2020-02-28 15:52] VITALS: BP 124/74; PULSE 75; RESP 18; TEMP 98.5
--- NOTE | 2020-02-28 16:06 | P.PN ---
Progress Note - Text Progress Note Date: 02/28/20 Azalea is an 79-year-old white female status post left breast simple mastectomy on . She had had a prior lumpectomy which revealed multifocal invasive lobular carcinoma and lobular carcinoma in situ in October 2019. She did not wish to have any endocrine or radiation therapy and chose to have a simple mastectomy. She has done well with the surgery. Her pathology revealed atypical lobular hyperplasia greater than 1 cm for many margin of excision. No residual infiltrating carcinoma. Physical exam: Lungs: Clear Heart: Regular rate and rhythm Incision: Clean and dry ONEL drain in place serous output greater than 100 mL per day Impression: Patient doing well postop Plan: Leave ONEL drain until next week Staple removal CC: Jaleesa Sanchez
== END | disposition home or self-care (01) ==
LOC: WWCWWP 14:54
PROVIDERS: ATTEND Surgery
DX: Z53.9 Procedure and treatment not carried out, unspecified reason (principal)

== ENCOUNTER 2020-03-02 23:16 | Emergency (ER) | payer MEDICARE, OTHER ==
[2020-03-02 23:23] VITALS: BP 172/92; PULSE 82; RESP 18; TEMP 98
[2020-03-02] MEDS ORDERED: SODIUM CHLORIDE 0.9% 1,000 ML IV ONE (23:48)
[2020-03-03 00:36] LABS: Basophils % (A) 0 %; Eosinophils # (A) 0.4 k/uL (0-0.7); Eosinophils % (A) 5 %; HCT 38.7 % (34.0-46.0); HGB 12.2 gm/dL (11.4-16.0); Hypochromasia Slight; Lymphocytes # (A) 1.9 k/uL (1.0-4.8); Lymphocytes % (A) 22 %; MCH 32.2 pg (25.0-35.0); MCHC 31.5 g/dL (31.0-37.0); MCV 102.3 fL (80.0-100.0); Macrocytosis Slight; Mean Platelet Volume 9.1; Monocytes # (A) 0.7 k/uL (0-1.0); Monocytes % (A) 8 %; Neutrophils # (A) 5.3 k/uL (1.3-7.7); Neutrophils % (A) 62 %; Platelet Count 213 k/uL (150-450); RBC 3.78 m/uL (3.80-5.40); RDW 13.5 % (11.5-15.5); WBC 8.6 k/uL (3.8-10.6)
[2020-03-03 01:01] LABS: Appearance,Urine Clear (Clear); Bacteria,Urine Occasional /hpf; Bilirubin,Urine 2+ (Negative); Blood,Urine Negative (Negative); Color,Urine Yellow; Glucose,Urine (UA) Negative (Negative); Ketones,Urine Negative (Negative); Leukocyte Esterase,Urine Moderate (Negative); Mucus,Urine Rare /hpf; Nitrite,Urine Negative (Negative); PH, Urine 5.5 (5.0-8.0); Protein,Urine 1+ (Negative); RBC,Urine 1 /hpf (0-5); Specific Gravity,Urine 1.022 (1.001-1.035); Squamous Epithelial Cell,Urine 2 /hpf (0-4); WBC,Urine 9 /hpf (0-5)
[2020-03-03 01:09] LABS: Albumin 3.5 g/dL (3.5-5.0); Calcium 8.7 mg/dL (8.4-10.2); Potassium 4.4 mmol/L (3.5-5.1); Total Bilirubin 0.5 mg/dL (0.2-1.3); Total Protein 6.7 g/dL (6.3-8.2)
--- NOTE | 2020-03-03 01:30 | XR ---
EXAMINATION TYPE: XR chest 2V DATE OF EXAM: 03/03/2020 COMPARISON: NONE HISTORY: Fever. Recent surgery TECHNIQUE: 2 views FINDINGS: Heart is normal. Lungs are clear of consolidation. There is minimal atelectasis left lower lobe. There is no pleural effusion or pneumothorax. There is some lucency over the left breast consis tent with surgery. There is paraspinal marga stabilizing the thoracolumbar spine. IMPRESSION: Minimal scarring or subsegmental atelectasis in the left midlung. No heart failure. No pu lmonary consolidation. Normal heart.
[2020-03-03] MEDS ORDERED: CEPHALEXIN 500MG STARTER PACK 4 CAP BTL PO STA (02:12)
--- NOTE | 2020-03-03 02:15 | ED ---
Recheck HPI - General Chief Complaint: Recheck/Abnormal Lab/Rx Stated Complaint: Post Op draining Time Seen by Provider: 03/02/20 23:30 Source: patient Mode of arrival: ambulatory Limitations: no limitations - History of Present Illness Initial Comments: 79-year-old female patient presents to the emergency department today for evaluation of left breast wound. Patient had left sided mastectomy on 02/12/2020. She had a ONEL drain in place to the area. States that she did have a follow-up appointment [address] Greenfield, she was still having 75 mL of drainage per day so they decided to leave the drain in for 1 more week. Should have a follow-up appointment coming up this week to have it removed. Patient states the drain fell out today. States the drainage has been looking more cloudy than usual. She did have a fever yesterday around 101F. Denies any drainage or redness in the surgical incision. Denies any cough, congestion, sore throat, or rash. Denies any abdominal pain, nausea, vomiting. Denies any significant discomfort to the surgical site. Denies hematuria, dysuria, urinary frequency, urinary urgency. States she is tolerating oral intake. Patient denies any recent rash, shortness of breath, chest pain, diarrhea, constipation, back pain, numbness, tingling, dizziness, weakness, hematuria, headache, visual changes, or any other complaints. - Related Data Home Medications Medication Instructions Recorded Confirmed Cyclobenzaprine [Flexeril] 10 mg PO HS 08/02/19 02/28/20 Etodolac [Lodine] 400 mg PO BID 08/02/19 02/28/20 Gabapentin [Neurontin] 300 mg PO BID 08/02/19 02/28/20 lisinopriL [Zestril] 20 mg PO HS 08/02/19 02/28/20 traMADol HCL [Ultram] 50 mg PO BID 08/02/19 02/28/20 Previous Rx's Medication Instructions Recorded Cephalexin [Keflex] 500 mg PO Q6HR #40 cap 03/03/20 Allergies Allergy/AdvReac Type Severity Reaction Status Date / Time No Known Allergies Allergy Verified 03/02/20 23:23 Review of Systems ROS Statement: Those systems with pertinent positive or pertinent negative responses have been documented in the HPI. ROS Other: All systems not noted in ROS Statement are negative. Past Medical History Past Medical History: Cancer, Hypertension, Osteoarthritis (OA) Additional Past Medical History / Comment(s): HX OF BACK SURGERIES WITH BACK PAIN. -USES CANE, HX OF BASAL CELL CANCER, NEW DIAGNOSIS OF LEFT BREAST CANCER. History of Any Multi-Drug Resistant Organisms: None Reported Past Surgical History: Back Surgery Additional Past Surgical History / Comment(s): BACK SURGERY X6- HAS RODS (2018), left breast removal. Past Anesthesia/Blood Transfusion Reactions: Previous Problems w/ Anesthesia, Family History of Problems w/ Anesthesia Additional Past Anesthesia/Blood Transfusion Reaction / Comment(s): STATES DI FFICULTY WAKING UP- THEY TRIED DIFFERENT MEDS TO REVERSE ANESTHESIA. PATIENT STATES HER MOTHER ALSO HAD DIFFICULTY WAKING UP. Past Psychological History: No Psychological Hx Reported Smoking Status: Never smoker Past Alcohol Use History: Occasional Past Drug Use History: None Reported - Past Family History Mother Family Medical History: Cancer, Pulmonary Embolus Additional Family Medical History / Comment(s): BREAST AND UTERINE CANCER General Exam Limitations: no limitations General appearance: alert, in no apparent distress, other (This is a well- developed, well-nourished adult female patient in no acute distress. Vital signs upon presentation are temperature 98.0F, pulse 82, respirations 18, blood pressure 172/92, pulse ox 98% on room air.) Eye exam: Present: normal appearance, PERRL, EOMI. Absent: scleral icterus, conjunctival injection, periorbital swelling ENT exam: Present: normal exam, normal oropharynx, mucous membranes moist Respiratory exam: Present: normal lung sounds bilaterally. Absent: respiratory distress, wheezes, rales, rhonchi, stridor Cardiovascular Exam: Present: regular rate, normal rhythm, normal heart sounds. Absent: systolic murmur, diastolic murmur, rubs, gallop, clicks GI/Abdominal exam: Present: soft, normal bowel sounds. Absent: distended, tenderness, guarding, rebound, rigid Neurological exam: Present: alert, oriented X3, CN II-XII intact Psychiatric exam: Present: normal affect, normal mood Skin exam: Present: warm, dry, intact, normal color, other (Patient has left chest incision from mastectomy, the chest incision is well approximated with steri strips, no erythema or drainage noted. There is left lateral drain site with scant purulent drainage and mild surrounding erythema. ). Absent: rash Course Vital Signs 03/02/20 23:18 Temperature 98 F Pulse Rate 82 Respiratory 18 Rate Blood Pressure 172/92 O2 Sat by Pulse 98 Oximetry Medical Decision Making - Medical Decision Making 79-year-old female patient presented to the emergency department today for evaluation of left chest wound. Patient had mastectomy 2 weeks ago. She did have a ONEL drain in place which fell out today. So she presented here for evaluation. Did admit to having a fever yesterday. Physical examination did reveal well approximated left chest incision with no erythema or drainage. The left lateral ONEL drain site did have mild surrounding erythema and scant purulent drainage. This was cultured. Patient was afebrile while here in the department. White blood cell count was normal. She did have mild elevation in her BUN and creatinine, she was given 1 L of fluid. I did inform her of r hazel. She is instructed to follow-up with her primary care physician to have repeat kidney function test performed this week. She is instructed to follow-up with her surgeon Evelyn for further evaluation and direction. We will start her on Keflex for possible cellulitis and urinary tract infection. She is instructed to return for any new, worsening, or concerning symptoms. She verbalizes understanding and agrees this plan. - Lab Data Result diagrams: 03/03/20 00:22 03/03/20 00:22 Lab Results 03/03/20 03/03/20 03/03/20 Range/Units 00:22 00:22 00:22 WBC 8.6 (3.8-10.6) k/uL RBC 3.78 L (3.80-5.40) m/uL Hgb 12.2 (11.4-16.0) gm/dL Hct 38.7 (34.0-46.0) % MCV 102.3 H (80.0-100.0) fL MCH 32.2 (25.0-35.0) pg MCHC 31.5 (31.0-37.0) g/dL RDW 13.5 (11.5-15.5) % Plt Count 213 (150-450) k/uL Neutrophils % 62 % Lymphocytes % 22 % Monocytes % 8 % Eosinophils % 5 % Basophils % 0 % Neutrophils # 5.3 (1.3-7.7) k/uL Lymphocytes # 1.9 (1.0-4.8) k/uL Monocytes # 0.7 (0-1.0) k/uL Eosinophils # 0.4 (0-0.7) k/uL Basophils # 0.0 (0-0.2) k/uL Hypochromasia Slight Macrocytosis Slight Sodium 140 (137-145) mmol/L Potassium 4.4 (3.5-5.1) mmol/L Chloride 107 (98-107) mmol/L Carbon Dioxide 25 (22-30) mmol/L Anion Gap 8 mmol/L BUN 24 H (7-17) mg/dL Creatinine 1.22 H (0.52-1.04) mg/dL Est GFR (CKD-EPI)AfAm 48 (>60 ml/min/1.73 sqM) Est GFR (CKD-EPI)NonAf 42 (>60 ml/min/1.73 sqM) Glucose 104 H (74-99) mg/dL Plasma Lactic Acid Daniel 0.9 (0.7-2.0) mmol/L Calcium 8.7 (8.4-10.2) mg/dL Total Bilirubin 0.5 (0.2-1.3) mg/dL AST 24 (14-36) U/L ALT 15 (4-34) U/L Alkaline Phosphatase 85 (38-126) U/L Total Protein 6.7 (6.3-8.2) g/dL Albumin 3.5 (3.5-5.0) g/dL Urine Color Urine Appearance (Clear) Urine pH (5.0-8.0) Ur Specific [place] (1.001-1.035) Urine Protein (Negative) Urine Glucose (UA) (Negative) Urine Ketones (Negative) Urine Blood (Negative) Urine Nitrite (Negative) Urine Bilirubin (Negative) Urine Urobilinogen (<2.0) mg/dL Ur Leukocyte Esterase (Negative) Urine RBC (0-5) /hpf Urine WBC (0-5) /hpf Ur Squamous Epith Cells (0-4) /hpf Urine Bacteria (None) /hpf Urine Mucus (None) /hpf 03/03/20 Range/Units 00:22 WBC (3.8-10.6) k/uL RBC (3.80-5.40) m/uL Hgb (11.4-16.0) gm/dL Hct (34.0-46.0) % MCV (80.0-100.0) fL MCH (25.0-35.0) pg MCHC (31.0-37.0) g/dL RDW (11.5-15.5) % Plt Count (150-450) k/uL Neutrophils % % Lymphocytes % % Monocytes % % Eosinophils % % Basophils % % Neutrophils # (1.3-7.7) k/uL Lymphocytes # (1.0-4.8) k/uL Monocytes # (0-1.0) k/uL Eosinophils # (0-0.7) k/uL Basophils # (0-0.2) k/uL Hypochromasia Macrocytosis Sodium (137-145) mmol/L Potassium (3.5-5.1) mmol/L Chloride (98-107) mmol/L Carbon Dioxide (22-30) mmol/L Anion Gap mmol/L BUN (7-17) mg/dL Creatinine (0.52-1.04) mg/dL Est GFR (CKD-EPI)AfAm (>60 ml/min/1.73 sqM) Est GFR (CKD-EPI)NonAf (>60 ml/min/1.73 sqM) Glucose (74-99) mg/dL Plasma Lactic Acid Daniel (0.7-2.0) mmol/L Calcium (8.4-10.2) mg/dL Total Bilirubin (0.2-1.3) mg/dL AST (14-36) U/L ALT (4-34) U/L Alkaline Phosphatase (38-126) U/L Total Protein (6.3-8.2) g/dL Albumin (3.5-5.0) g/dL Urine Color Yellow Urine Appearance Clear (Clear) Urine pH 5.5 (5.0-8.0) Ur Specific [place] 1.022 (1.001-1.035) Urine Protein 1+ H (Negative) Urine Glucose (UA) Negative (Negative) Urine Ketones Negative (Negative) Urine Blood Negative (Negative) Urine Nitrite Negative (Negative) Urine Bilirubin 2+ H (Negative) Urine Urobilinogen 2.0 (<2.0) mg/dL Ur Leukocyte Esterase Moderate H (Negative) Urine RBC 1 (0-5) /hpf Urine WBC 9 H (0-5) /hpf Ur Squamous Epith Cells 2 (0-4) /hpf Urine Bacteria Occasional H (None) /hpf Urine Mucus Rare H (None) /hpf Disposition Clinical Impression: Urinary tract infection, Postoperative wound cellulitis Disposition: HOME SELF-CARE Condition: Good Instructions (If sedation given, give patient instructions): Dehydration (ED), Urinary Tract Infection in Women (ED), Acute Wound Care (ED) Additional Instructions: Keep wound clean and dry. Cleanse twice daily with warm water and antibacterial soap. Increase fluids. Take antibiotics as directed. Call Dr. Greenfield for an appointment Tuesday. Return to the emergency department immediately for any new, worsening, or concerning symptoms. Prescriptions: Cephalexin [Keflex] 500 mg PO Q6HR #40 cap Is patient prescribed a controlled substance at d/c from ED?: No Referrals: Kal Hill MD [Primary Care Provider] - 1-2 days Kalie Greenfield MD [STAFF PHYSICIAN] - 1-2 days Time of Disposition: 02:15
== END 2020-03-03 02:32 | disposition home or self-care (01) ==
LOC: EC 23:16
DX: T81.49XA Infection following a procedure, other surgical site, initial encounter (principal); R79.89 Other specified abnormal findings of blood chemistry; N39.0 Urinary tract infection, site not specified; I10 Essential (primary) hypertension; M19.90 Unspecified osteoarthritis, unspecified site; M54.9 Dorsalgia, unspecified; Z79.1 Long term (current) use of non-steroidal anti-inflammatories (NSAID); Z79.899 Other long term (current) drug therapy; Z85.828 Personal history of other malignant neoplasm of skin; Z85.3 Personal history of malignant neoplasm of breast; Z90.12 Acquired absence of left breast and nipple
CPT/HCPCS: 36415; 71046; 80053; 81001; 83605; 85025; 87040; 87070; 87077; 87086; 87186; 87205; 96360; 99282

== ENCOUNTER → 2020-03-04 | Outpatient (CLI) | payer MEDICARE, OTHER ==
[2020-03-04 15:56] VITALS: BP 147/76; PULSE 89; RESP 16; TEMP 98.9
--- NOTE | 2020-03-04 18:01 | P.PN ---
Progress Note - Text Progress Note Date: 03/04/20 A call was received was received that over the weekend the patient's ONEL drain came out. She was noted to have some swelling of the area of the mastectomy site with some possible cellulitis. She was seen in the emergency room and started on an antibiotic. She was called and asked to present to the office. She states in the emergency room she was told she had a urinary tract infection. She has not had any fever or chills at this time. She states she is not having any pain and is doing well. Physical exam: Fluctuance of mastectomy site/seroma No evidence of cellulitis Impression: Seroma left mastectomy site Plan: drainage of seroma After consent from the patient an 18-gauge needle on a 60 mL syringe was inserted into the area of fluctuance. This was done after the skin was prepped using alcohol. 80 mL of straw-colored fluid was obtained. The seroma resolved. The patient will be seen in 1 week. If she develops any symptoms or problems she will call us sooner.
== END | disposition home or self-care (01) ==
LOC: WWCWWP 15:11
PROVIDERS: ATTEND Surgery
DX: Z53.9 Procedure and treatment not carried out, unspecified reason (principal)

== ENCOUNTER → 2020-03-07 | Outpatient (CLI) | payer MEDICARE, OTHER ==
--- NOTE | 2020-03-07 16:19 | P.PN ---
Progress Note - Text Progress Note Date: 03/07/20 Azalea is an 79-year-old white female [place] [id number] [id number] after her ONEL drain had come out and had she developed a seroma. Seroma was aspirated for 80 mL of fluid. She returns today for repeat evaluation of the site. She has no complaints today. She does have slight amount of fluctuance to this site. Physical exam: Lungs: Clear Heart: Regular rate and rhythm Incision: Clean and dry seroma present Impression: 1. Patient doing well status post left breast mastectomy seroma present The area of concern on the chest wall was prepped using alcohol. An 18-gauge needle and a 60 mL syringe was utilized to aspirate 100 mL of straw-colored fluid. The seroma resolved. The patient tolerated procedure in stable condition. Plan: Follow-up 2 weeks
[2020-03-07 16:56] VITALS: BP 133/79; PULSE 90; RESP 18
== END | disposition home or self-care (01) ==
LOC: WWCWWP 16:00
PROVIDERS: ATTEND Surgery
DX: Z53.9 Procedure and treatment not carried out, unspecified reason (principal)

== ENCOUNTER → 2020-03-21 | Outpatient (CLI) | payer MEDICARE, OTHER ==
[2020-03-21 16:15] VITALS: BP 148/88; PULSE 83; RESP 18; TEMP 98.6
--- NOTE | 2020-03-21 16:28 | P.PN ---
Progress Note - Text Progress Note Date: 03/21/20 Azalea is an 79-year-old [place] [id number] [id number] after her ONEL drain had come out and had she developed a seroma. Seroma was aspirated for 100 mL of fluid. She returns today for repeat evaluation of the site. She has no complaints today. Physical exam: Lungs: Clear Heart: Regular rate and rhythm Incision: Clean and dry , small seroma present Impression: 1. Patient doing well status post left breast mastectomy small seroma present; we have talked about aspiration however it is not bothering the patient is a very small seroma she is going to be followed clinically Plan: Follow-up 2 weeks to evaluate if the seroma is absorbing if she becomes symptomatic she will see us sooner Cc: Dr. Jaleesa Sanchez
== END | disposition home or self-care (01) ==
LOC: WWCWWP 16:03
PROVIDERS: ATTEND Surgery
DX: Z53.9 Procedure and treatment not carried out, unspecified reason (principal)

== ENCOUNTER → 2020-04-04 | Outpatient (CLI) | payer MEDICARE, OTHER ==
[2020-04-04 16:21] VITALS: BP 134/84; PULSE 90; RESP 18; TEMP 98.2
--- NOTE | 2020-04-04 16:40 | P.PN ---
Progress Note - Text Progress Note Date: 04/04/20 Azalea is an 79-year-old white [place] [id number] [id number] after her ONEL drain had come out and had she developed a seroma. Seroma was aspirated for 100 mL of fluid. She returns today for repeat evaluation of the site, at this time there is minimal fluid at this site and she is going to have a prescription for prosthesis. She has no complaints today. Physical exam: Lungs: Clear Heart: Regular rate and rhythm Incision: Clean and dry , small seroma present Impression: 1. Patient doing well status post left breast mastectomy small seroma present 2. Prescription for a left breast prosthesis Plan: Follow up in 3 months Cc: Dr. Jaleesa Sanchez
== END | disposition home or self-care (01) ==
LOC: WWCWWP 16:08
PROVIDERS: ATTEND Surgery
DX: Z53.9 Procedure and treatment not carried out, unspecified reason (principal)

== ENCOUNTER → 2020-07-17 | Outpatient (CLI) | payer MEDICARE, OTHER ==
[2020-07-17 14:40] VITALS: BP 182/92; PULSE 75; RESP 18; TEMP 98.8
--- NOTE | 2020-07-21 14:44 | P.PN ---
Subjective Progress Note Date: 07/17/20 Principal diagnosis: left breast cancer stage IA left breast cancer Azalea is an 79-year-old white female seen in consultation for Jaleesa Sanchez who on routine screening mammogram performed was noted to have a 7 mm lesion in the upper inner quadrant of the left breast. No lesions of concern were identified in the right breast. The patient subsequently had an ultrasound performed which again confirmed a 7 mm lesion the 9 o'clock position of the left breast. She subsequently underwent an ultrasound guided core biopsy on 06/10/2019 which was ductal carcinoma in situ low-grade, ER/AK positive. She did not feel any recent masses or nodules in the right breast. She was not complaining of any nipple discharge or skin change. She had not had any recent trauma or infection of the breast. Many years ago she had a right breast biopsy which was benign. She is not complaining of any lumps or masses on the left chest wall. On 11-20-19 Azalea underwent a left breast lumpectomy and axillary node biopsy. [place] node biopsy was negative for metastatic disease. The lumpectomy specimen revealed multifocal invasive lobular cancer and extensive lobular carcinoma in situ. Patient is not interested in receiving radiation therapy or any endocrine therapy. She would prefer to have a simple mastectomy on the left. A simple mastectomy was preformed on 02-12-20. She was last seen on 04-04-20 and a prescricption was given for a prosthesis. Her last right breast mammogram was on [id number] and this was benign BIRADS 2. She has not had any radiation, hormonal therapy, or chemotherapy. Family history: 1. mother: breast cancer at 89, uterine cancer 2. maternal aunt: breast cancer 60's 3. patient: basal cell cancers resected face and arms 4. brother: basal cell cancer Hormonal History: menarche: 15 , first born at 19, breast fed: yes menopause: 52 BCP: none hormones: < 1 year Surgical History: 1. right breast surgery 2. Scoliosis patient has had multiple back surgeries and has rods in her back/ last 1 year ago Medical History: none Social History: smoke: none; used to smoke for 15 years, stopped in 1975 alcohol: occasional wine drugs: none - Constitutional Constitutional: Denies chills, Denies fever - EENT Comment: bilateral cataract surgery Eyes: denies blurred vision, denies pain Ears: deny: decreased hearing, tinnitus Ears, nose, mouth and throat: Denies headache, Denies sore throat - Breasts Breasts: bilateral: as per HPI - Cardiovascular Comment: mitral valve prolapse Cardiovascular: Denies chest pain, Denies shortness of breath - Respiratory Comment: asthma when young not now Respiratory: Denies cough - Gastrointestinal Gastrointestinal: Denies abdominal pain, Denies diarrhea, Denies nausea, Denies vomiting - Genitourinary (Female) Genitourinary: Denies dysuria, Denies hematuria - Menstruation Menstruation: Reports postmenopausal - Musculoskeletal Comment: back pain, arthritis - Integumentary Comment: 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, basal cell caner in the past Integumentary: Reports rash - Neurological Neurological: Reports numbness, Denies weakness - Psychiatric Psychiatric: Denies anxiety, Denies depression - Endocrine Endocrine: Denies fatigue, Denies weight change - Hematologic/Lymphatic Comment: none - Allergic/Immunologic Allergic/Immunologic: Reports seasonal allergies Objective - Vital Signs Vital signs: Vital Signs Temp 98.8 F 07/17/20 14:37 Pulse 75 07/17/20 14:37 Resp 18 07/17/20 14:37 BP 182/92 07/17/20 14:37 Pulse Ox 95 07/17/20 14:37 Intake & Output 07/16/20 07/17/20 07/17/20 18:59 06:59 18:59 Weight 68.039 kg - Exam BMI 23.5 - Constitutional General appearance: Present: average body habitus - EENT Eyes: Present: EOMI ENT: Present: hearing grossly normal - Neck Neck: Present: normal ROM - Respiratory Respiratory: bilateral: CTA - Cardiovascular Rhythm: regular Heart sounds: normal: S1, S2 - Gastrointestinal General gastrointestinal: Present: soft - Integumentary Integumentary: Present: normal turgor - Musculoskeletal Musculoskeletal: Present: gait normal - Psychiatric Psychiatric: Present: A&O x's 3, appropriate affect, intact judgment & insight - Additional findings Additional findings: breast exam: right breast: 34C inspection: grade 3 ptosis right breast, left chest wall no evidence of recurrence Palpation: right breast: Multiple position of exam no dominant masses or nodules of concern Right axilla: No adenopathy of concern Left chest wall: No evidence of any recurrent cancer Left axilla: No axillary adenopathy of concern Assessment and Plan Assessment: Impression: 1. Fibrocystic breast changes 2. Left breast multifocal invasive lobular carcinoma status post mastectomy, patient has not had any radiation or chemo or hormonal therapy no evidence of any recurrence at this time Plan: 1. Repeat examination in 4 months 2. right breast mammogram in December 2020 CC: Jaleesa Sanchez encounter 15 minutes, > 50% of time in planning and counselling
== END | disposition home or self-care (01) ==
LOC: WWCWWP 14:26
PROVIDERS: ATTEND Surgery
DX: Z53.9 Procedure and treatment not carried out, unspecified reason (principal)

== ENCOUNTER → 2020-11-13 | Outpatient (CLI) | payer MEDICARE, OTHER ==
[2020-11-13 15:25] VITALS: BP 169/96; PULSE 86; RESP 18; TEMP 98.7
--- NOTE | 2020-11-13 15:41 | P.PN ---
Subjective Progress Note Date: 11/13/20 Principal diagnosis: stage IA left breast cancer left breast cancer stage IA left breast cancer Azalea is an 79-year-old white female seen in consultation for Jaleesa Sanchez who on routine screening mammogram performed was noted to have a 7 mm lesion in the upper inner quadrant of the left breast. No lesions of concern were identified in the right breast. The patient subsequently had an ultrasound performed which again confirmed a 7 mm lesion the 9 o'clock position of the left breast. She subsequently underwent an ultrasound guided core biopsy on 06/10/2019 which was ductal carcinoma in situ low-grade, ER/MT positive. She did not feel any recent masses or nodules in the right breast. She was not complaining of any nipple discharge or skin change. She had not had any recent trauma or infection of the breast. Many years ago she had a right breast biopsy which was benign. She is not complaining of any lumps or masses on the left chest wall. On 11-20-19 Azalea underwent a left breast lumpectomy and axillary node biopsy. [place] node biopsy was negative for metastatic disease. The lumpectomy specimen revealed multifocal invasive lobular cancer and extensive lobular carcinoma in situ. Patient is not interested in receiving radiation therapy or any endocrine therapy. She would prefer to have a simple mastectomy on the left. A left simple mastectomy was preformed on 02-12-20. She was last seen on 04-04-20 and a prescricption was given for a prosthesis. [place] [id number] and this was benign BIRADS 2. She has not had any radiation, hormonal therapy, or chemotherapy. The patient at this time has no complaints related to her left chest wall. She has no complaints of any masses or nodules in her right breast. Her last right bresat mammogram was January 24, 2021. Family history: 1. mother: breast cancer at 89, uterine cancer 2. maternal aunt: breast cancer 60's 3. patient: basal cell cancers resected face and arms 4. brother: basal cell cancer Hormonal History: menarche: 15 , first born at 19, breast fed: yes menopause: 52 BCP: none hormones: < 1 year Surgical History: 1. right breast surgery 2. Scoliosis patient has had multiple back surgeries and has rods in her back/ last 1 year ago Medical History: none Social History: smoke: none; used to smoke for 15 years, stopped in 1975 alcohol: occasional wine drugs: none - Constitutional Constitutional: Denies chills, Denies fever - EENT Comment: bilateral cataract surgery Eyes: denies blurred vision, denies pain Ears: deny: decreased hearing, tinnitus Ears, nose, mouth and throat: Denies headache, Denies sore throat - Breasts Breasts: bilateral: as per HPI - Cardiovascular Comment: mitral valve prolapse Cardiovascular: Denies chest pain, Denies shortness of breath - Respiratory Comment: asthma when young not now Respiratory: Denies cough - Gastrointestinal Gastrointestinal: Denies abdominal pain, Denies diarrhea, Denies nausea, Denies vomiting - Genitourinary (Female) Genitourinary: Denies dysuria, Denies hematuria - Menstruation Menstruation: Reports postmenopausal - Musculoskeletal Comment: back pain, arthritis - Integumentary Comment: 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 supervisor 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 processing, basal cell caner in the past Integumentary: Reports rash - Neurological Neurological: Reports numbness, Denies weakness - Psychiatric Psychiatric: Denies anxiety, Denies depression - Endocrine Endocrine: Denies fatigue, Denies weight change - Hematologic/Lymphatic Comment: none - Allergic/Immunologic Allergic/Immunologic: Reports seasonal allergies Objective - Vital Signs Vital signs: Vital Signs Temp 98.7 F 11/13/20 15:21 Pulse 86 11/13/20 15:21 Resp 18 11/13/20 15:21 BP 169/96 11/13/20 15:21 Pulse Ox 97 11/13/20 15:21 Intake & Output 11/12/20 11/13/20 11/13/20 18:59 06:59 18:59 Weight 68.039 kg - Constitutional General appearance: Present: cooperative - EENT Eyes: Present: EOMI ENT: Present: hearing grossly normal - Neck Neck: Present: normal ROM - Respiratory Respiratory: bilateral: CTA - Cardiovascular Heart sounds: normal: S1, S2 - Integumentary Integumentary Comment(s): incision clean and dry no evidence of recurrence - Musculoskeletal Musculoskeletal Comment(s): scoliosis - Psychiatric Psychiatric: Present: A&O x's 3, appropriate affect, intact judgment & insight - Additional findings Additional findings: breast exam: right breast: Multi-positional exam fibrocystic changes, no dominant masses or nodules of concern Right axilla: No adenopathy of concern Left chest wall, no evidence of any recurrence Left axilla: No adenopathy of concern Assessment and Plan Assessment: Impression: 1. status post left breast mastectomy for multifocal invasive lobular carcinoma. She has not had any radiation chemo or hormonal therapy. No evidence of any re currence 2. Right breast fibrocystic breast changes Plan: 1. Repeat examination of 3 months with right breast mammogram 2. Patient to follow up sooner if any questions or concerns CC: Yusuf Sanchez
== END ==
LOC: WWCWWP 15:10
PROVIDERS: ATTEND Surgery
DX: N60.11 Diffuse cystic mastopathy of right breast (principal); Z85.3 Personal history of malignant neoplasm of breast; Z90.12 Acquired absence of left breast and nipple; Z87.891 Personal history of nicotine dependence

== ENCOUNTER → 2021-01-29 | Outpatient (CLI) | payer MEDICARE, OTHER ==
[2021-01-29 13:01] VITALS: BP 93/63; PULSE 80; RESP 18; TEMP 98.3
--- NOTE | 2021-01-29 13:12 | P.PN ---
Subjective Progress Note Date: 01/29/21 Principal diagnosis: left breast mastectomy for multifocal invasive lobular carcinoma stage IA left breast cancer stage IA left breast cancer Azalea is an 80-year-old white female seen in consultation for Jaleesa Sanchez who on routine screening mammogram performed was noted to have a 7 mm lesion in the upper inner quadrant of the left breast. No lesions of concern were identified in the right breast. The patient subsequently had an ultrasound performed which again confirmed a 7 mm lesion the 9 o'clock position of the left breast. She subsequently underwent an ultrasound guided core biopsy on 06/10/2019 which was ductal carcinoma in situ low-grade, ER/[place] positive. On 11-20-19 Azalea underwent a left breast lumpectomy and axillary node biopsy. [place] node biopsy was negative for metastatic disease. The lumpectomy specimen revealed multifocal invasive lobular cancer and extensive lobular carcinoma in situ. Patient is not interested in receiving radiation therapy or any endocrine therapy. She would prefer to have a simple mastectomy on the left. A left simple mastectomy was preformed on 02-12-20. She was seen on 04-04-20 and a prescricption was given for a prosthesis. Her last right breast mammogram was on 01-29-21 and this was benign on preliminary report. She has not had any radiation, hormonal therapy, or chemotherapy. The patient at this time has no complaints related to her left chest wall. She has no complaints of any masses or nodules in her right breast. Her last right breast mammogram was January 24, 2021. Family history: 1. mother: breast cancer at 89, uterine cancer 2. maternal aunt: breast cancer 60's 3. patient: basal cell cancers resected face and arms 4. brother: basal cell cancer Hormonal History: menarche: 15 , first born at 19, breast fed: yes menopause: 52 BCP: none hormones: < 1 year Surgical History: 1. right breast surgery 2. Scoliosis patient has had multiple back surgeries and has rods in her back/ last 1 year ago Medical History: none Social History: smoke: none; used to smoke for 15 years, stopped in 1975 alcohol: occasional wine drugs: none - Constitutional Constitutional: Denies chills, Denies fever - EENT Comment: bilateral cataract surgery Eyes: denies blurred vision, denies pain Ears: deny: decreased hearing, tinnitus Ears, nose, mouth and throat: Denies headache, Denies sore throat - Breasts Breasts: bilateral: as per HPI - Cardiovascular Comment: mitral valve prolapse Cardiovascular: Denies chest pain, Denies shortness of breath - Respiratory Comment: asthma when young not now Respiratory: Denies cough - Gastrointestinal Gastrointestinal: Denies abdominal pain, Denies diarrhea, Denies nausea, Denies vomiting - Genitourinary (Female) Genitourinary: Denies dysuria, Denies hematuria - Menstruation Menstruation: Reports postmenopausal - Musculoskeletal Comment: back pain, arthritis - Integumentary Comment: 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771 kg - Constitutional General appearance: Present: cooperative - EENT Eyes: Present: EOMI ENT: Present: hearing grossly normal - Neck Neck: Present: normal ROM - Respiratory Respiratory: bilateral: CTA - Cardiovascular Heart sounds: normal: S1 - Integumentary Integumentary Comment(s): incision left chest wall well healed - Musculoskeletal Musculoskeletal Comment(s): uses a cane, scoliosis - Psychiatric Psychiatric: Present: A&O x's 3, appropriate affect, intact judgment & insight - Additional findings Additional findings: breast exam: BRA: 40C inspection: Status post left mastectomy, grade 3 ptosis right breast Palpation: Right breast: Multiple positional exam fibrocystic changes no dominant masses or nodules of concern Right axilla: No adenopathy of concern Left chest wall: No evidence of recurrent cancer Left axilla: No adenopathy of concern Fungal infection under the right breast Assessment and Plan Assessment: Impression: 1. Status post left mastectomy for multifocal invasive lobular carcinoma, no evidence of recurrence 2. Recent right breast mammogram benign awaiting official report 3. Fungal infection under right breast Plan: 1. Review official report and right breast mammogram 2. Nystatin under the right breast as needed 3. Repeat examination here in 6 months CC: Dr. Jaleesa Sanchez
--- NOTE | 2021-02-03 13:24 | MM ---
Reason for exam: additional evaluation requested from prior study. Last mammogram was performed 1 year ago. History: Patient is postmenopausal, has history of breast cancer at age 79, and history of other cancer. Family history of breast cancer in mother at age 89. Malignant MG pre op needle loc LT of the left breast, November 20, 2019. Lumpectomy of the left breast, November 20, 2019. Mastectomy of the left breast, 2019. Physical Findings: Nurse did not find any significant physical abnormalities on exam. MG 3D Diag Mammo W/Cad RT CC, MLO, and XCCL view(s) were taken of the right breast. Prior study comparison: January 25, 2020, right breast MG 3d diag mammo w/cad RT. May 30, 2019, mammogram. There are scattered fibroglandular densities. Finding: There are typically benign vascular, linear calcifications in the right breast. There is no discrete abnormality. These results were verbally communicated with the patient and result sheet given to the patient on 01/29/21. ASSESSMENT: Benign, BI-RAD 2 RECOMMENDATION: Follow-up diagnostic mammogram of the right breast in 1 year.
== END | disposition home or self-care (01) ==
LOC: RADMAMWWP 10:32
PROVIDERS: ATTEND Surgery
DX: Z09 Encounter for follow-up examination after completed treatment for conditions other than malignant neoplasm (principal); Z85.3 Personal history of malignant neoplasm of breast
CPT/HCPCS: 77065; G0279; 77061

== ENCOUNTER → 2021-10-09 | Outpatient (CLI) | payer MEDICARE, OTHER ==
[2021-10-09 14:48] VITALS: BP 176/73; PULSE 86; RESP 17; TEMP 97.8
--- NOTE | 2021-10-09 14:58 | P.PN ---
Subjective Progress Note Date: 10/09/21 Principal diagnosis: stage IA left breast cancer stage IA left breast cancer left breast cancer 11-13-20 stage IA left breast cancer Azalea is an 79-year-old white female seen in consultation for Jaleesa Sanchez who on routine screening mammogram performed was noted to have a 7 mm lesion in the upper inner quadrant of the left breast. No lesions of concern were identified in the right breast. The patient subsequently had an ultrasound performed which again confirmed a 7 mm lesion the 9 o'clock position of the left breast. 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 She did not feel any recent masses or nodules in the right breast. She was not complaining of any nipple discharge or skin change. She had not had any recent trauma or infection of the breast. Many years ago she had a right breast biopsy which was benign. She is not complaining of any lumps or masses on the left chest wall. On 11-20-19 Azalea underwent a left breast lumpectomy and axillary node biopsy. [place] node biopsy was negative for metastatic disease. The lumpectomy specimen revealed multifocal invasive lobular cancer and extensive lobular carcinoma in situ. Patient is not interested in receiving radiation therapy or any endocrine therapy. She would prefer to have a simple mastectomy on the left. A left simple mastectomy was preformed on 02-12-20. She was last seen on 04-04-20 and a prescricption was given for a prosthesis. [place] [id number] and this was benign BIRADS 2. She has not had any radiation, hormonal therapy, or chemotherapy. The patient at this time has no complaints related to her left chest wall. She has no complaints of any masses or nodules in her right breast. Her last right bresat mammogram was January 24, 2021. 10-08-21 Azalea is an 81 year old white female status post left mastectomy and SNB for a multifocal invasive lobulsr carcinoma. She had a right breast mammogram on 01-29-21 which was benign BIRAD 2. She did not have any radiation or hormonal therapy. She is not complaining of any lumps masses or nodules of concern on her left chest wall or in her right breast. Family history: 1. mother: breast cancer at 89, uterine cancer 2. maternal aunt: breast cancer 60's 3. patient: basal cell cancers resected face and arms 4. brother: basal cell cancer Hormonal History: menarche: 15 , first born at 19, breast fed: yes menopause: 52 BCP: none hormones: < 1 year Surgical History: 1. right breast surgery 2. Scoliosis patient has had multiple back surgeries and has rods in her back/ last 1 year ago Medical History: wearing a brace for back disease Social History: smoke: none; used to smoke for 15 years, stopped in 1975 alcohol: occasional wine drugs: none - Constitutional Constitutional: Denies chills, Denies fever - EENT Comment: bilateral cataract surgery Eyes: denies blurred vision, denies pain Ears: deny: decreased hearing, tinnitus Ears, nose, mouth and throat: Denies headache, Denies sore throat - Breasts Breasts: bilateral: as per HPI - Cardiovascular Comment: mitral valve prolapse Cardiovascular: Denies chest pain, Denies shortness of breath - Respiratory Comment: asthma when young not now Respiratory: Denies cough - Gastrointestinal Gastrointestinal: Denies abdominal pain, Denies diarrhea, Denies nausea, Denies vomiting - Genitourinary (Female) Genitourinary: Denies dysuria, Denies hematuria - Menstruation Menstruation: Reports postmenopausal - Musculoskeletal Comment: back pain, arthritis - Integumentary Comment: 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, basal cell caner in the past Integumentary: Reports rash - Neurological Neurological: Reports numbness, Denies weakness - Psychiatric Psychiatric: Denies anxiety, Denies depression - Endocrine Endocrine: Denies fatigue, Denies weight change - Hematologic/Lymphatic Comment: none - Allergic/Immunologic Allergic/Immunologic: Reports seasonal allergies Objective - Vital Signs Vital signs: Vital Signs Temp 97.8 F 10/09/21 14:45 Pulse 86 10/09/21 14:45 Resp 17 10/09/21 14:45 BP 176/73 10/09/21 14:45 Pulse Ox 95 10/09/21 14:45 Intake & Output 10/08/21 10/09/21 10/09/21 18:59 06:59 18:59 Weight 68.039 kg - Exam BMI: 23.5 - Constitutional General appearance: Present: cooperative - EENT Eyes: Present: EOMI ENT: Present: hearing grossly normal - Neck Neck: Present: normal ROM - Respiratory Respiratory: bilateral: CTA - Cardiovascular Rhythm: regular Heart sounds: normal: S1, S2 - Integumentary Integumentary: Present: normal turgor - Musculoskeletal Musculoskeletal Comment(s): wears a back brace Musculoskeletal: Present: gait normal - Psychiatric Psychiatric: Present: A&O x's 3, appropriate affect, intact judgment & insight - Additional findings Additional findings: Breast Exam: Bra: 38B right breast inspection: left mastectomy palpation: right breast: Positional exam fibrocystic changes no dominant masses or nodules of concern Right axilla: No adenopathy of concern Left chest wall: No evidence of recurrent cancer Left axilla: No adenopathy of concern Assessment and Plan Assessment: Impression: Left breast stage IA invasive lobular carcinoma no evidence of recurrent cancer Plan: Repeat right breast mammogram in January 2022 with physician exam at that time CC: Jaleesa Sanchez
== END | disposition home or self-care (01) ==
LOC: WWCWWP 14:36
PROVIDERS: ATTEND Surgery
DX: Z53.9 Procedure and treatment not carried out, unspecified reason (principal)

== ENCOUNTER → 2022-02-01 | Outpatient (CLI) | payer MEDICARE, OTHER ==
--- NOTE | 2022-02-08 07:02 | MM ---
Reason for Exam: Hx of breast cancer, mastectomy. Last screening mammogram was performed 12 month(s) ago. Patient History: Menarche at age 15. First Full-Term at age 19. Postmenopausal. Breast cancer, left, age 79. 2019, Mastectomy on the Left side. 11/20/2019, Lumpectomy on the Left side. 11/20/2019, Malignant Core Biopsy on the left side. Mother had breast cancer, age 89. Prior Study Comparison: 06/13/2019 Screening Mammogram, Unknown. 01/25/2020 Right Diagnostic Mammogram, [facility]. 01/29/2021 Right Diagnostic Mammogram, [facility]. Tissue Density: Right: There are scattered fibroglandular densities. Findings: Analyzed By CAD. There are scattered benign punctate calcifications present. Benign vascular calcifications present. No significant interval change is evident. Overall Assessment: Benign, BI-RAD 2 Management: Diagnostic Mammogram of the right breast in 1 year. A clinical breast exam by your physician is recommended on an annual basis and results should be correlated with mammographic findings. This exam should not preclude additional follow-up of suspicious palpable abnormalities. Results were given to the patient verbally at the time of exam. Electronically signed and approved by: Saravanan Gutierrez D.O. Radiologis
== END | disposition home or self-care (01) ==
LOC: RADMAMWWP 12:47
PROVIDERS: ATTEND Surgery
DX: Z08 Encounter for follow-up examination after completed treatment for malignant neoplasm (principal); Z85.3 Personal history of malignant neoplasm of breast
CPT/HCPCS: 77065; G0279; 77061

== ENCOUNTER 2022-05-05 12:45 | Inpatient (IN) | payer MEDICARE, OTHER ==
[2022-05-05] MEDS ORDERED: SODIUM CHLORIDE 0.9% 500 ML 500 ML IV STA (12:50)
[2022-05-05 12:51] LABS: Glucose,Whole Blood 117 mg/dL (70-110)
--- NOTE | 2022-05-05 13:27 | CT ---
EXAMINATION TYPE: CT brain deanne krishnan DATE OF EXAM: 05/05/2022 COMPARISON: NONE HISTORY: Neuro deficit acute onset. Trauma fall injury with neck pain CT DLP: 1294.7 mGycm. Automated Exposure Control for Dose Reduction was Utilized. TECHNIQUE: CT scan of the head and cervical spine are performed without contrast. FINDINGS: There is no acute intracranial hemorrhage or midline shift identified. The ventricles an d sulci are within normal limits in size for patient's age. Mild to moderate areas of low-attenuation in the deep and periventricular white matter are present. The calvarium is intact. The globes are in tact and the visualized sinuses are clear. Nasal septum deviated to right of midline. Cervical spine is visualized in its entirety from C1 through upper thoracic levels and demonstrates d extroconvex scoliosis centered in the upper thoracic spine without evidence of acute fracture or disl ocation. Prevertebral soft tissue appears within normal limits. The C1-C2 articulation is within no rmal limits on the coronal images. There is anterior fusion plate with metallic disc material C4-C7 levels. There is grade 1 anterolisthesis C7 on T1. Moderate to severe disc space narrowing and modera te spurring at T1-T2 and T2-T3 levels is present. Review of axial images shows multilevel uncovertebral facet degenerative changes contributing to mult ilevel bilateral neural foraminal narrowing greatest at C3-C4 level axial image 38. Lung apices show no pneumothorax bilaterally. Somewhat small size thyroid gland is seen. IMPRESSION: 1. There is no acute fracture or dislocation evident in the cervical spine. 2. No acute intracranial hemorrhage or midline shift is seen.
[2022-05-05 13:35] LABS: Basophils % (A) 0 %; Eosinophils # (A) 0.1 k/uL (0-0.7); Eosinophils % (A) 0 %; HCT 40.2 % (34.0-46.0); HGB 13.1 gm/dL (11.4-16.0); Lymphocytes # (A) 0.7 k/uL (1.0-4.8); Lymphocytes % (A) 4 %; MCH 33.4 pg (25.0-35.0); MCHC 32.7 g/dL (31.0-37.0); MCV 102.1 fL (80.0-100.0); Monocytes # (A) 0.7 k/uL (0-1.0); Monocytes % (A) 4 %; Neutrophils % (A) 91 %; Platelet Count 185 k/uL (150-450); RBC 3.94 m/uL (3.80-5.40); RDW 12.6 % (11.5-15.5); WBC 16.5 k/uL (3.8-10.6)
--- NOTE | 2022-05-05 13:41 | CT ---
EXAMINATION TYPE: CT angio head neck DATE OF EXAM: 05/05/2022 COMPARISON: HISTORY: Neuro deficit CT DLP: 393 mGycm CONTRAST: Performed with IV Contrast, patient injected with 65 mL of Isovue 370. Combination Contrast CTA cervical carotids and [place] CTA cervical carotids with 3-D recons truction Contrast CTA of the cervical carotids was performed 3-D reconstruction imaging obtained at a separate workstation. Right carotid system: Mild plaque is seen of the right common carotid artery. There is mild plaque a lso noted at the carotid bulb and proximal ICA. No significant diameter reduction. ECA is patent. Right vertebral artery appears unremarkable. Left carotid system: Mild plaque is seen of the left common carotid artery. There is mild plaque als o noted at the carotid bulb and proximal ICA. No significant diameter reduction. ECA is patent. Lef t vertebral artery appears unremarkable. IMPRESSION: 1. No significant diameter reduction to account for the patient's symptoms. CTA [place] with 3-D reconstruction Contrast CTA of the [place] was performed 3-D reconstruction imaging obtained at a separate workstation. Vertebrobasilar system as well as intracranial portions of the internal carotid arteries and their [place] tributaries are patent. I do not see evidence for sizable aneurysm or vascular malformation. Pl ease note MRI provides greater sensitivity and specificity. Visualized brain appears grossly unremar kable. IMPRESSION: 1. No significant abnormality. NASCET criteria was used in interpretation of this exam?
--- NOTE | 2022-05-05 13:42 | ED ---
General Adult HPI - General Chief complaint: Neuro Symptoms/Deficit Stated complaint: stroke symptoms Time Seen by Provider: 05/05/22 12:45 Source: patient, EMS, RN notes reviewed, old records reviewed Mode of arrival: EMS Limitations: altered mental status - History of Present Illness Initial comments: This is an 81-year-old female presents emergency Department with left-sided facial droop and left-sided paralysis. According to EMS the left-sided pa ralysis was complete when they first picked up the patient. Patient was last seen normal 7:30 this morning. Patient family found her at 11:00 and when they found her she had plate left-sided paralysis. Patient is alert and oriented 3. Patient states 2 days ago she fell and hit her head quite hard on the ground and was not evaluated. Patient denies any new neck pain. Patient denies any chest pain or palpitations. Patient denies any recent fever chills or cough. Patient denies similar symptoms in the past. Patient denies any blood thinners. Patient denies any visual disturbance and there is no report of any disturbance. Patient is able to move the arm and leg a little in the emergency department on arrival and EMS said that is a improvement compared to when they picked her up. - Related Data Home Medications Medication Instructions Recorded Confirmed Cyclobenzaprine [Flexeril] 10 mg PO HS 08/02/19 10/09/21 Etodolac [Lodine] 400 mg PO BID 08/02/19 10/09/21 Gabapentin [Neurontin] 300 mg PO BID 08/02/19 10/09/21 lisinopriL [Zestril] 20 mg PO HS 08/02/19 10/09/21 traMADol HCL [Ultram] 50 mg PO BID 08/02/19 10/09/21 Lovastatin [Mevacor] 20 mg PO QAM 07/17/20 10/09/21 Metoprolol Succinate (ER) [Toprol 25 mg PO DAILY 07/17/20 10/09/21 Xl] Allergies Allergy/AdvReac Type Severity Reaction Status Date / Time No Known Allergies Allergy Verified 10/09/21 14:42 Review of Systems ROS Statement: Those systems with pertinent positive or pertinent negative responses have been documented in the HPI. ROS Other: All systems not noted in ROS Statement are negative. Past Medical History Past Medical History: Cancer, Hypertension, Osteoarthritis (OA) Additional Past Medical History / Comment(s): HX OF BACK SURGERIES WITH BACK PAIN. -USES CANE, HX OF BASAL CELL CANCER, NEW DIAGNOSIS OF LEFT BREAST CANCER. History of Any Multi-Drug Resistant Organisms: None Reported Past Surgical History: Back Surgery Additional Past Surgical History / Comment(s): BACK SURGERY X6- HAS RODS (2018), left breast removal. Past Anesthesia/Blood Transfusion Reactions: Previous Problems w/ Anesthesia, Family History of Problems w/ Anesthesia Additional Past Anesthesia/Blood Transfusion Reaction / Comment(s): STATES DIFFICULTY WAKING UP- THEY TRIED DIFFERENT MEDS TO REVERSE ANESTHESIA. PATIENT STATES HER MOTHER ALSO HAD DIFFICULTY WAKING UP. Past Psychological History: No Psychological Hx Reported Additional Psychological History / Comment(s): PTS SPOUSE PASSED THIS MONTH (OCTOBER 2019) Smoking Status: Never smoker Past Alcohol Use History: Occasional Additional Past Alcohol Use History / Comment(s): QUIT SMOKING 1977, SMOKED 2 CIGARETTES /DAY, STARTED SMOKING AGE 15. Past Drug Use History: None Reported - Past Family History Mother Family Medical History: Cancer, Pulmonary Embolus Additional Family Medical History / Comment(s): BREAST AND UTERINE CANCER General Exam - General Exam Comments Initial Comments: GENERAL: Patient is well-developed and well-nourished. Patient is nontoxic and well- hydrated and is in no acute distress. ENT: Neck is soft and supple. No significant lymphadenopathy is noted. Oropharynx is clear. Moist mucous membranes. Neck has full range of motion without eliciting any pain. EYES: The sclera were anicteric and conjunctiva were pink and moist. Extraocular movements were intact and pupils were equal round and reactive to light. Eyelids were unremarkable. PULMONARY: Unlabored respirations. Good breath sounds bilaterally. No audible rales rhonchi or wheezing was noted. CARDIOVASCULAR: There is a regular rate and rhythm without any murmurs gallops or rubs. ABDOMEN: Soft and nontender with normal bowel sounds. SKIN: Skin is clear with no lesions or rashes and otherwise unremarkable. NEUROLOGIC: Patient is alert and oriented x3. Patient has a subtle droop on the left side of the face and has 2 out of 5 strength in the left arm and 1 out of 5 strength of the left leg dorsi and plantar flexion. MUSCULOSKELETAL: Patient's other 3 extremities have full range of motion. LYMPHATICS: No significant lymphadenopathy is noted PSYCHIATRIC: Normal psychiatric evaluation. Limitations: altered mental status Course Vital Signs 05/05/22 05/05/22 12:52 14:37 Pulse Rate 95 98 Respiratory 16 21 Rate Blood Pressure 135/76 153/77 O2 Sat by Pulse 96 95 Oximetry Medical Decision Making - Medical Decision Making I interpreted EKG. EKG shows sinus rhythm at 89 bpm MT interval is 187. QRS is 96 QT interval 357 QTC is 404. Patient's EKG shows no ST segment elevation or depression. I interpreted the chest x-ray. Chest x-ray showed questionable right lower lobe pneumonia. That was at 2:40 PM when I saw the x-ray. Patient was started Rocephin at this time blood cultures were done as was a lactic acid. I interpreted the pelvis x-ray. I saw no acute fractures on the pelvis x-ray. I interpreted the CT of the brain I saw no intracranial hemorrhage or mass affect. I interpreted the C-spine. I saw no acute fractures in the C-spine. I interpreted the CT angiogram I saw no obvious deficits in any of the arterial system. - Lab Data Result diagrams: 05/05/22 13:30 05/05/22 13:30 Lab Results 05/05/22 05/05/22 05/05/22 Range/Units 12:49 13:30 13:30 WBC 16.5 H (3.8-10.6) k/uL RBC 3.94 (3.80-5.40) m/uL Hgb 13.1 (11.4-16.0) gm/dL Hct 40.2 (34.0-46.0) % MCV 102.1 H (80.0-100.0) fL MCH 33.4 (25.0-35.0) pg MCHC 32.7 (31.0-37.0) g/dL RDW 12.6 (11.5-15.5) % Plt Count 185 (150-450) k/uL MPV 9.0 Neutrophils % 91 % Lymphocytes % 4 % Monocytes % 4 % Eosinophils % 0 % Basophils % 0 % Neutrophils # 15.0 H (1.3-7.7) k/uL Lymphocytes # 0.7 L (1.0-4.8) k/uL Monocytes # 0.7 (0-1.0) k/uL Eosinophils # 0.1 (0-0.7) k/uL Basophils # 0.0 (0-0.2) k/uL PT 11.5 (9.0-12.0) sec INR 1.1 (<1.2) APTT 22.2 (22.0-30.0) sec Sodium (137-145) mmol/L Potassium (3.5-5.1) mmol/L Chloride (98-107) mmol/L Carbon Dioxide (22-30) mmol/L Anion Gap mmol/L BUN (7-17) mg/dL Creatinine (0.52-1.04) mg/dL Est GFR (CKD-EPI)AfAm (>60 ml/min/1.73 sqM) Est GFR (CKD-EPI)NonAf (>60 ml/min/1.73 sqM) Glucose (74-99) mg/dL POC Glucose (mg/dL) 117 H (70-110) mg/dL POC Glu Coordinator [employer] ID Paul Kadi Calcium (8.4-10.2) mg/dL Total Bilirubin (0.2-1.3) mg/dL AST (14-36) U/L ALT (4-34) U/L Alkaline Phosphatase (38-126) U/L Troponin I (0.000-0.034) ng/mL Total Protein (6.3-8.2) g/dL Albumin (3.5-5.0) g/dL 05/05/22 05/05/22 Range/Units 13:30 13:30 WBC (3.8-10.6) k/uL RBC (3.80-5.40) m/uL Hgb (11.4-16.0) gm/dL Hct (34.0-46.0) % MCV (80.0-100.0) fL MCH (25.0-35.0) pg MCHC (31.0-37.0) g/dL RDW (11.5-15.5) % Plt Count (150-450) k/uL MPV Neutrophils % % Lymphocytes % % Monocytes % % Eosinophils % % Basophils % % Neutrophils # (1.3-7.7) k/uL Lymphocytes # (1.0-4.8) k/uL Monocytes # (0-1.0) k/uL Eosinophils # (0-0.7) k/uL Basophils # (0-0.2) k/uL PT (9.0-12.0) sec INR (<1.2) APTT (22.0-30.0) sec Sodium 137 (137-145) mmol/L Potassium 4.4 (3.5-5.1) mmol/L Chloride 105 (98-107) mmol/L Carbon Dioxide 27 (22-30) mmol/L Anion Gap 5 mmol/L BUN 20 H (7-17) mg/dL Creatinine 0.85 (0.52-1.04) mg/dL Est GFR (CKD-EPI)AfAm 74 (>60 ml/min/1.73 sqM) Est GFR (CKD-EPI)NonAf 64 (>60 ml/min/1.73 sqM) Glucose 132 H (74-99) mg/dL POC Glucose (mg/dL) (70-110) mg/dL POC Glu Coordinator [employer] ID Calcium 8.2 L (8.4-10.2) mg/dL Total Bilirubin 0.7 (0.2-1.3) mg/dL AST 21 (14-36) U/L ALT 16 (4-34) U/L Alkaline Phosphatase 73 (38-126) U/L Troponin I <0.012 (0.000-0.034) ng/mL Total Protein 6.0 L (6.3-8.2) g/dL Albumin 3.3 L (3.5-5.0) g/dL Critical Care Time Critical Care Time: Yes Total Critical Care Time: 35 Disposition Clinical Impression: Cerebrovascular accident (CVA), Pneumonia Disposition: ADMITTED IP TO THIS HOSP Referrals: Kal Hill MD [Primary Care Provider] - 1-2 days Time of Disposition: 14:46
[2022-05-05 13:47] LABS: Albumin 3.3 g/dL (3.5-5.0); Calcium 8.2 mg/dL (8.4-10.2); Potassium 4.4 mmol/L (3.5-5.1); Total Bilirubin 0.7 mg/dL (0.2-1.3)
[2022-05-05 13:59] LABS: INR 1.1 (<1.2); Partial Thromboplastin Time 22.2 sec (22.0-30.0); Prothrombin Time 11.5 sec (9.0-12.0)
--- NOTE | 2022-05-05 14:14 | XR ---
EXAMINATION TYPE: XR chest 2V DATE OF EXAM: 05/05/2022 COMPARISON: 05/05/2022 TECHNIQUE: PA and lateral views submitted. HISTORY: Fever FINDINGS: The lungs are clear and there is no pneumothorax or pleural effusion. Elevated right hemidiaphragm with postsurgical changes. Subsegmental changes right lung base. Arthropathy of the shoulders. Linear changes involving the perihilar regions most typical scar or atelectasis. Degenerative changes of th e spine. IMPRESSION: 1. Right basilar subsegmental atelectasis or early infiltrate. Favor atelectasis.
--- NOTE | 2022-05-05 14:15 | XR ---
EXAMINATION TYPE: XR pelvis AP view DATE OF EXAM: 05/05/2022 COMPARISON: None HISTORY: Pain Postsurgical change involving the sacrum and lower lumbar spine. Contrast within the bladder. Hypertr ophic changes of the acetabulum to be associated with femoral acetabular impingement. No acute fractu re. IMPRESSION: 1. No acute fracture. 2. Postsurgical changes.
[2022-05-05] MEDS ORDERED: cefTRIAXone IN SWFI 1,000 MG/10 ML SYRINGE IVP STA ×2 (14:40→14:41)
[2022-05-05] MEDS ORDERED: ASPIRIN 325 MG TAB PO STA (14:47)
[2022-05-05] MEDS ORDERED: AZITHROMYCIN 500 MG in SODIUM CHLORIDE 0.9% 250 ML IVPB STA (14:51)
--- NOTE | 2022-05-05 16:06 | P.CNNES ---
History of Present Illness Consult date: 05/05/22 Requesting physician: Familia Galvan Reason for Consult: cva History of Present Illness: This is an 81-year-old woman who presented emergency department because of left- sided facial droop and left-sided weakness. Some of the history is obtained from patient's son and grandson who are at bedside. The patient presents to our facility today around 1245 in afternoon. Patient last normal state was around 11 PM yesterday and the she was witnessed by family members around late 10 AM that she was mumbling. She was noted to have left facial droop and left-sided weakness. According to the patient about 2 days ago she had a fall and fell out of bed from sleep but did not have any focal deficit. She did notice later p ossibly in the day that she had some weakness in the left upper extremity that was transient and that resolved but the history is very vague but according to the patient's son and grandson yesterday she was doing completely fine and did not have any focal deficit. She denies any history of strokes. She denies being on any antiplatelets or anticoagulation. Was felt by the ED that that she was better on presentation compared to the one the EMS saw her. Some other workup during this hospital visit consisted of: As a result a stroke code was activated by the ED team Initial white blood cells 16.5 slightly neutrophilic Initial POC glucose is 117, sodium, calcium AST ALT creatinine are within normal limits CT of the head is reported as no acute intracranial hemorrhage or midline shift. CT of the c-spine is reported as there is no acute fracture or dislocation evident in the cervical spine. CT angiography of the head and neck was reported as no significant diameter reduction to account for the patient's symptoms. No IV TPA since his symptoms are somewhat improving and the patient is outside the window for IV tpa and the risk outweighed the benefit. Review of Systems Review of system: The 12 point system was reviewed and apparent positive and negative per HPI. Past Medical History Past Medical History: Cancer, Hypertension, Osteoarthritis (OA) Additional Past Medical History / Comment(s): HX OF BACK SURGERIES WITH BACK PAIN. -USES CANE, HX OF BASAL CELL CANCER, NEW DIAGNOSIS OF LEFT BREAST CANCER. History of Any Multi-Drug Resistant Organisms: None Reported Past Surgical History: Back Surgery Additional Past Surgical History / Comment(s): BACK SURGERY X6- HAS RODS (2018), left breast removal. Past Anesthesia/Blood Transfusion Reactions: Previous Problems w/ Anesthesia, Family History of Problems w/ Anesthesia Additional Past Anesthesia/Blood Transfusion Reaction / Comment(s): STATES DIFFICULTY WAKING UP- THEY TRIED DIFFERENT MEDS TO REVERSE ANESTHESIA. PATIENT STATES HER MOTHER ALSO HAD DIFFICULTY WAKING UP. Past Psychological History: No Psychological Hx Reported Additional Psychological History / Comment(s): PTS SPOUSE PASSED THIS MONTH (OCTOBER 2019) Smoking Status: Never smoker Past Alcohol Use History: Occasional Additional Past Alcohol Use History / Comment(s): QUIT SMOKING 1977, SMOKED 2 CIGARETTES /DAY, STARTED SMOKING AGE 15. Past Drug Use History: None Reported - Past Family History Mother Family Medical History: Cancer, Pulmonary Embolus Additional Family Medical History / Comment(s): BREAST AND UTERINE CANCER Medications and Allergies Home Medications Medication Instructions Recorded Confirmed Type Cyclobenzaprine [Flexeril] 10 mg PO TID 08/02/19 05/05/22 History Etodolac [Lodine] 400 mg PO BID 08/02/19 05/05/22 History Gabapentin [Neurontin] 300 mg PO BID 08/02/19 05/05/22 History traMADol HCL [Ultram] 50 mg PO Q6H 08/02/19 05/05/22 History Metoprolol Succinate (ER) [Toprol 25 mg PO DAILY 07/17/20 05/05/22 History Xl] lisinopriL [Zestril] 40 mg PO HS 05/05/22 05/05/22 History Allergies Allergy/AdvReac Type Severity Reaction Status Date / Time No Known Allergies Allergy Verified 05/05/22 15:20 Physical Examination - Vital Signs Vital Signs: Vital Signs Pulse Resp BP Pulse Ox 05/05/22 14:37 98 21 153/77 95 05/05/22 12:52 95 16 135/76 96 Intake and Output 05/05/22 05/05/22 05/05/22 06:59 14:59 22:59 Other: Weight 65 kg GENERAL: The patient is lying in bed and is not in acute distress. CHEST: The heart rate is regular rate rhythm. No murmurs to auscultation. LUNG: Clear to auscultation bilaterally no wheezing noted throughout. Not labored breathing. ABDOMEN/GI: Bowel sounds present in all 4 quadrants. No tenderness to palpation throughout. NEUROLOGICAL: Higher mental function: The patient is slightly drowsy but is awakeable to voice. Oriented to self and place. She stated the year is 2007 and the month is May. Patient is following commands. No aphasia and no neglect. Cranial nerves: The pupils are round, equal and reactive to light. Visual rosales are full to confrontation throughout. Extraocular movement is intact no nystagmus is noted. Facial sensation is normal to touch throughout. The facial strength is left lower facial droop. Hearing is moderately decrease to hand rub bilaterally. Tongue is midline and moved [id number] without any difficulty. Mild to moderate dysarthria is noted. Shoulder shrug is normal bilaterally. Motor: The strength is had significant drift over the left upper and lower (more drift over the left upper). Decrease tone over the left side. Normal bulk. Cerebellum: Normal finger to nose over the right. Sensation: Sensation is normal to touch throughout. Reflexes (right/left): 1+ throughout. Plantars are mute bilaterally. Results - Laboratory Findings CBC and BMP: 05/05/22 13:30 05/05/22 13:30 Abnormal Lab Findings: Abnormal Labs 05/05/22 05/05/22 05/05/22 12:49 13:30 13:30 WBC 16.5 H MCV 102.1 H Neutrophils # 15.0 H Lymphocytes # 0.7 L BUN 20 H Glucose 132 H POC Glucose (mg/dL) 117 H Calcium 8.2 L Total Protein 6.0 L Albumin 3.3 L Assessment and Plan Assessment: Acute left facial weakness and left-sided hemiparesis with dysarthria due to acute ischemic stroke. No IV TPA since outside the window Hypertension History of left breast cancer s/p resection about 2 years ago Basal cell carcinoma Plan: I ordered MRI of the brain with and without to rule out stroke vs brain mets especially with hx of breast cancer. In the ED the patient was given aspirin 325 once then was started on aspirin 325 daily. I also started the patient on Lipitor 40 mg daily at bedtime for secondary stroke prophylaxis. I will hold off on starting dual antiepileptic for now until we get the MRI of the brain. Ordered 2-D echo. Lipid panel is ordered and is pending PT OT and PRODUCT TE[employer] are consulted Continue neuro checks Placed on cardiac monitoring Defer the rest of the medical management to the primary team For DVT prophylaxis I started the patient on subcu heparin 5000 units every hours. The plan is discussed with patient and family members (son and grandson) Thank you for the consultation. Time with Patient: Greater than 30
[2022-05-05] MEDS: HEPARIN SODIUM,PORCINE/PF 5,000 UNIT/0.5 ML SYRINGE SQ SCH ×2 (17:13→23:46)
[2022-05-05] MEDS: ASPIRIN 300 MG SUPP RECTAL SCH (17:14)
[2022-05-05] MEDS: ATORVASTATIN 40 MG TAB PO SCH (20:20)
[2022-05-06] MEDS: ASPIRIN 300 MG SUPP RECTAL SCH (07:47)
[2022-05-06] MEDS: HEPARIN SODIUM,PORCINE/PF 5,000 UNIT/0.5 ML SYRINGE SQ SCH ×3 (07:51→23:24)
[2022-05-06] MEDS ORDERED: ASPIRIN 325 MG TAB PO SCH (09:00)
[2022-05-06] MEDS: ACETAMINOPHEN SUPPOSITORY 650 MG SUPP RECTAL PRN (09:07)
[2022-05-06] MEDS: AZITHROMYCIN 500 MG in SODIUM CHLORIDE 0.9% 250 ML IVPB SCH (09:15)
--- NOTE | 2022-05-06 11:11 | MR ---
EXAMINATION TYPE: MR brain wo/w con DATE OF EXAM: 05/06/2022 COMPARISON: CT scan 05/05/2022 HISTORY: left facial and extremities TECHNIQUE: Multiplanar, multisequence images of the brain and brainstem is performed without and with IV contras t, utilizing 6 mL intravenous Gadavist . FINDINGS: Exam limited by patient motion artifact. Diffusion weighted images demonstrate a 3 cm area of abnormal signal right basal ganglia and right ce ntral semiovale. There is mild mass effect upon the right lateral ventricle. Report called to patient 's nurse 11:05 AM 05/06/2022. Moderate generalized degenerative changes with both diffuse and focal areas of additional abnormal si gnal seen scattered throughout the white matter in a nonspecific pattern but most typical of remote i schemia. Abnormal signal within the jose is suggestive of remote ischemia. Additional areas of focal abnormal signal involving the left basal ganglia suggestive of remote lacunar infarct. Midline structures demonstrate normal morphology. The craniocervical junction appears within normal limits. Post contrast images demonstrate no abnormal enhancement. The dural venous sinuses appear pa tent. Changes of chronic sinusitis. And the globes are intact. IMPRESSION: 1. Acute ischemia right basal ganglia and centrum semiovale measuring approximately 3.0 cm. Mild mass effect upon the right lateral ventricle. 2. Degenerative and extensive nonspecific white matter changes most typical remote ischemia. 3. Exam is limited due to severe motion artifact particularly limitations the postcontrast images. Co rrelate clinically.
[2022-05-06 11:25] LABS: Chol/HDL Ratio 2.96 Ratio; LDL Cholesterol,Calculated 108.7 mg/dL (0.0-131.0); VLDL Calculation 17.82 mg/dL (5.00-40.00)
--- NOTE | 2022-05-06 11:59 | CA ---
Transthoracic Echo Report Name: Azalea Rod Age: 81 Gender: F : 1940 Exam Date: 05/06/2022 08:34 Exam Location: [facility] Ht (in): 66 Wt (lb): 143 Ordering Physician: Shane Reed MD Attending/Referring Phys: Him Assistant Skylar Bourgeois RDCS Procedure CPT: Indications: stroke Cardiac Hx: Technical Quality: Good Contrast 1: Total Dose (mL): Contrast 2: Total Dose (mL): MEASUREMENTS (Male / Female) Normal Values 2D ECHO LV Diastolic Diameter PLAX 3.7 cm 4.2 - 5.9 / 3.9 - 5.3 cm LV Systolic Diameter PLAX 2.7 cm IVS Diastolic Thickness 1.4 cm 0.6 - 1.0 / 0.6 - 0.9 cm LVPW Diastolic Thickness 1.4 cm 0.6 - 1.0 / 0.6 - 0.9 cm LV Relative Wall Thickness 0.7 RV Internal Dim ED PLAX 3.3 cm LA Systolic Diameter LX 3.7 cm 3.0 - 4.0 / 2.7 - 3.8 cm M-MODE Aortic Root Diameter MM 3.2 cm MV E Point Septal Separation 0.8 cm AV Cusp Separation MM 2.0 cm DOPPLER AV Peak Velocity 166.5 cm/s AV Peak Gradient 11.1 mmHg MV Area PHT 8.6 cm??? Mitral E Point Velocity 150.0 cm/s Mitral A Point Velocity 56.7 cm/s Mitral E to A Ratio 2.6 MV Deceleration Time 87.7 ms MV E' Velocity 7.4 cm/s Mitral E to MV E' Ratio 20.1 TR Peak Velocity 223.3 cm/s TR Peak Gradient 19.9 mmHg Right Ventricular Systolic Press 24.9 mmHg FINDINGS Left Ventricle Left ventricular ejection fraction is estimated at 60-65 %. Small left ventricular cavity. Moderate concentric left ventricular hypertrophy. Right Ventricle Mild right ventricular dilatation. Right ventricular systolic pressure within normal limits. Right Atrium Normal right atrial size. Left Atrium Normal left atrial size. No evidence for an atrial septal defect. Mitral Valve Structurally normal mitral valve. Mitral valve prolapse was mild to moderate MR Aortic Valve Trileaflet aortic valve. No aortic valve stenosis or regurgitation. Tricuspid Valve Structurally normal tricuspid valve. Mild tricuspid regurgitation. Pulmonic Valve Trace pulmonic regurgitation. Pericardium Normal pericardium. No pericardial effusion. Aorta Normal size aortic root and proximal ascending aorta. CONCLUSIONS Normal left ventricular dimension and systolic function Mitral valve prolapse was mild to moderate MR Previewed by: Dr. Yury Clark MD (Electronically Signed) Final Date: 06 May 2022 11:59
[2022-05-06 12:27] LABS: Basophils % (A) 0 %; Eosinophils % (A) 0 %; HGB 13.3 gm/dL (11.4-16.0); Lymphocytes # (A) 1.2 k/uL (1.0-4.8); Lymphocytes % (A) 10 %; MCH 34.1 pg (25.0-35.0); MCHC 33.3 g/dL (31.0-37.0); MCV 102.5 fL (80.0-100.0); Macrocytosis Slight; Mean Platelet Volume 12.1; Monocytes # (A) 0.7 k/uL (0-1.0); Monocytes % (A) 6 %; Neutrophils # (A) 9.9 k/uL (1.3-7.7); Neutrophils % (A) 83 %; Platelet Count 176 k/uL (150-450); RDW 12.7 % (11.5-15.5); WBC 11.9 k/uL (3.8-10.6)
[2022-05-06 12:44] LABS: African American GFR (CKD) >90 (>60 ml/min/1.73 sqM); Anion Gap 7 mmol/L; Blood Urea Nitrogen 16 mg/dL (7-17); Calcium 8.4 mg/dL (8.4-10.2); Carbon Dioxide 23 mmol/L (22-30); Chloride 109 mmol/L (98-107); Glucose 116 mg/dL (74-99); Non-African American GFR(CKD) 81 (>60 ml/min/1.73 sqM); Potassium 3.9 mmol/L (3.5-5.1); Sodium 139 mmol/L (137-145)
--- NOTE | 2022-05-06 13:46 | P.PN ---
Subjective Progress Note Date: 05/06/22 The patient is seen at bedside and feels she is improving. She continues to have weakness on the left side. Objective - Vital Signs Vital signs: Vital Signs Temp 98.6 F 05/06/22 11:00 Pulse 98 05/06/22 11:00 Resp 18 05/06/22 11:00 BP 137/81 05/06/22 11:00 Pulse Ox 98 05/06/22 11:00 FiO2 Intake & Output 05/05/22 05/06/22 05/06/22 18:59 06:59 18:59 Output Total 550 Balance -550 Weight 65 kg Output: Urine 550 Other: Voiding Method Bedside Commode Bedside Commode # Voids 1 1 1 # Bowel Movements 1 - Exam GENERAL: The patient is lying in bed and is not in acute distress. NEUROLOGICAL: Higher mental function: The patient is minimally drowsy but is awakeable to voice. Oriented to self, time. She stated she was in the hospital. Patient is following commands. No aphasia and no neglect. Cranial nerves: The pupils are round, equal and reactive to light. Visual rosales are full to confrontation throughout. Extraocular movement is intact no nystagmus is noted. Facial sensation is normal to touch throughout. The facial strength is left lower facial droop. Tongue is midline and moved [id number] without any difficulty. Mild to dysarthria is noted. Shoulder shrug is normal bilaterally. Motor: The strength is had some drift over the left upper and lower (seems better today compared to yesterday). He left lower is limited because of lower back pain. Decrease tone over the left side. Normal bulk. Cerebellum: Normal finger to nose over the right. Sensation: Sensation is normal to touch throughout. Reflexes (right/left): 1+ throughout. Plantars are mute bilaterally. Some other workup during this hospital visit consisted of: Lipid panel: TG 89, Cholestrol 191, LDL 108, HDL 64 CT of the head is reported as no acute intracranial hemorrhage or midline shift. CT of the c-spine is reported as there is no acute fracture or dislocation evident in the cervical spine. CT angiography of the head and neck was reported as no significant diameter reduction to account for the patient's symptoms. MRI Brain w/ and w/o: It is reported as acute ischemia right basal ganglia and centrum semiovalve measuring approximaltely 3.0 cmm Mild mass effect upon right lateral ventricle. Degenerative and extensive nonspecific white matter changes most typical remote ischemia. Exam is limited due to severe motion artifact particulary limitations the postcontrast images. 2D echo is reported as normal left ventricular dimension and systolic function. MV prolapse and mild to moderate MR. NO evidence for atrial septal defect. - Labs CBC & Chem 7: 05/06/22 07:06 05/06/22 07:06 Labs: Abnormal Lab Results - Last 24 Hours (Table) 05/05/22 05/05/22 05/06/22 Range/Units 13:30 13:30 07:06 WBC 16.5 H (3.8-10.6) k/uL MCV 102.1 H (80.0-100.0) fL Neutrophils # 15.0 H (1.3-7.7) k/uL Lymphocytes # 0.7 L (1.0-4.8) k/uL Chloride (98-107) mmol/L BUN 20 H (7-17) mg/dL Glucose 132 H (74-99) mg/dL Calcium 8.2 L (8.4-10.2) mg/dL Total Protein 6.0 L (6.3-8.2) g/dL Albumin 3.3 L (3.5-5.0) g/dL HDL Cholesterol 64.50 H (40.00-60.00) mg/dL 05/06/22 05/06/22 Range/Units 07:06 07:06 WBC 11.9 H (3.8-10.6) k/uL MCV 102.5 H (80.0-100.0) fL Neutrophils # 9.9 H (1.3-7.7) k/uL Lymphocytes # (1.0-4.8) k/uL Chloride 109 H (98-107) mmol/L BUN (7-17) mg/dL Glucose 116 H (74-99) mg/dL Calcium (8.4-10.2) mg/dL Total Protein (6.3-8.2) g/dL Albumin (3.5-5.0) g/dL HDL Cholesterol (40.00-60.00) mg/dL Assessment and Plan Assessment: Acute left facial weakness and left-sided hemiparesis with dysarthria due to acute ischemic stroke (MRI Brain acute ischemia right basal ganglia and centrum semiovalve). Etiology of stroke is microvascular ischemic disease due to patients risk factors (HTN, age). Hypertension History of left breast cancer s/p resection about 2 years ago Basal cell carcinoma Plan: Patient has some dysphagia yesterday and will have speech evaluation for swallow evaluation. If unable to swallow, consider NG tube or PEG tube. She is on ASA 300mg suppository but able to swallow change to ASA 325mg daily and stated on Plavix 75mg daily. To be on dual antiplatelets 21 days and after 21 days, stop Plavix but continue ASA indefinitely. Continue Lipitor 40mg qhs for secondary stroke prophylaxis (LDL goal in stroke <70). PT OT and PHOTO STYLIST are consulted. Consulted Dr. Null for possible inpatient rehab. Continue neuro checks Placed on cardiac monitoring Defer the rest of the medical management to the primary team For DVT prophylaxis: subcu heparin 5000 units every hours. The plan is discussed with patient and family members (son and grandson) Time with Patient: Less than 30
[2022-05-06] MEDS: CLOPIDOGREL 75 MG TAB PO SCH (15:05)
[2022-05-06] MEDS: LIDOCAINE 5% PATCH TOPICAL SCH (15:36)
--- NOTE | 2022-05-06 15:46 | P.CONS ---
History of Present Illness - Chief Complaint Gait Disturbance, left hemiparesthesias - History of Present Illness I had the opportunity to see patient for inpatient rehab consultation. Patient admitted to Dr. Esparza May 05 acute onset left-sided weakness. Seen by neurology, Dr. Shane Reed. Diagnostic tests CT of head negative. CT of C-spine demonstrates grade 1 anterolisthesis C7 and moderate DDD T1, 2. Angiogram CT negative per chest x-ray demonstrates right base atelectasis. Pelvic x-ray with postoperative change only. Brain MRI with right basal ganglia infarct and degenerative change. PT, OT, PRACTICE BUSINESS ASST all prescribed. Previous functional history as elicited from patient currently son and grandson: 81-year-old right-handed white female who is well as a first-floor of 2 floor home with grandson. Grandsons as the cooking the patient about the laundry, driving, standing shower and gait with 4 wheeled walker. PCP Jaleesa Sanchez. Review of Systems Review of systems: ENT: Denies sneezes or discharge. Eyes: Denies discharge or photophobia. Cardiac: Denies chest pain or palpitation. Pulmonary: Denies cough or shortness of breath. Breast: Denies discharge or lumps. Gastrointestinal: Denies nausea, emesis, constipation, diarrhea. Genitourinary: Denies discharge or frequency. Musculoskeletal: Denies muscle or bone aches. Neurologic: Left-sided weakness and numbness as well as mild speech disturbance. Endocrine: Denies shakes or sweats. Oncology: Denies cancers. Dermatologic: Denies rash, itching, pruritus. ALLERGY/immunology: Denies sneezes, rashes. Past Medical History Past Medical History: Cancer, Hypertension, Osteoarthritis (OA) Additional Past Medical History / Comment(s): HX OF BACK SURGERIES WITH BACK PAIN. -USES CANE, HX OF BASAL CELL CANCER, left breast cancer History of Any Multi-Drug Resistant Organisms: None Reported Past Surgical History: Back Surgery Additional Past Surgical History / Comment(s): BACK SURGERY X6- HAS RODS (2018), left breast removal. Past Anesthesia/Blood Transfusion Reactions: Previous Problems w/ Anesthesia, Family History of Problems w/ Anesthesia Additional Past Anesthesia/Blood Transfusion Reaction / Comm: STATES DIFFICULTY WAKING UP- THEY TRIED DIFFERENT MEDS TO REVERSE ANESTHESIA. PATIENT STATES HER MOTHER ALSO HAD DIFFICULTY WAKING UP. Past Psychological History: No Psychological Hx Reported Additional Psychological History / Comment(s): PTS SPOUSE PASSED (OCTOBER 2019) Smoking Status: Never smoker Past Alcohol Use History: Occasional Additional Past Alcohol Use History / Comment(s): QUIT SMOKING 1977, SMOKED 2 CIGARETTES /DAY, STARTED SMOKING AGE 15. Past Drug Use History: None Reported - Past Family History Mother Family Medical History: Cancer, Pulmonary Embolus Additional Family Medical History / Comment(s): BREAST AND UTERINE CANCER Medications and Allergies Home Medications Medication Instructions Recorded Confirmed Type Cyclobenzaprine [Flexeril] 10 mg PO TID 08/02/19 05/05/22 History Etodolac [Lodine] 400 mg PO BID 08/02/19 05/05/22 History Gabapentin [Neurontin] 300 mg PO BID 08/02/19 05/05/22 History traMADol HCL [Ultram] 50 mg PO Q6H 08/02/19 05/05/22 History Metoprolol Succinate (ER) [Toprol 25 mg PO DAILY 07/17/20 05/05/22 History Xl] lisinopriL [Zestril] 40 mg PO HS 05/05/22 05/05/22 History Allergies Allergy/AdvReac Type Severity Reaction Status Date / Time No Known Allergies Allergy Verified 05/05/22 15:20 Physical Exam Vitals: Vital Signs Temp Pulse Pulse Resp BP BP Pulse Ox 05/06/22 13:40 98 05/06/22 11:00 98.6 F 98 18 137/81 98 05/06/22 08:04 91 L 05/06/22 07:46 98.1 F 79 18 146/81 96 05/06/22 04:00 99.4 F 101 H 18 150/73 96 05/06/22 01:47 103 H 16 05/06/22 00:00 100.0 F H 103 H 16 141/75 95 05/05/22 20:00 98.8 F 103 H 16 120/68 96 05/05/22 18:20 99.6 F 05/05/22 17:00 100 F H 104 H 18 150/77 94 L 05/05/22 16:26 105 H 16 164/96 94 L Intake and Output 05/06/22 05/06/22 05/06/22 06:59 14:59 22:59 Output Total 550 Balance -550 Output: Urine 550 Other: Voiding Method Bedside Commode Bedside Commode External Catheter # Voids 1 1 # Bowel Movements 1 Skin: Atrophic, intact. General: Medium build and comfortable appearance. Head: Normocephalic, atraumatic. Eyes: Symmetric. Pupils equal round. Ears: Symmetric. Hearing within normal limits. Mouth: Clear. Neck: Supple. Carotid without bruit. Cardiac: Regular rate and rhythm. Lungs: Clear anteriorly and posteriorly. Abdomen: Soft active nontender. Extremities: Normal tone. Neurological: Mental status: Alert, cooperative, pleasant. Very mild dysarthria. Cranial nerves: Symmetric facial tone and trapezius. Motor: Normal strength and isolation right side. Left arm in flexion synergy and left leg in extension synergy. Sensation: Intact right side and at least mildly depressed left-sided. DTRs: Symmetric and equal throughout. Mobility: Receiving care from nursing did not attempt to sit or stand at this time. Results CBC & Chem 7: 05/06/22 07:06 05/06/22 07:06 Labs: Abnormal Lab Results - Last 24 Hours (Table) 05/06/22 05/06/22 05/06/22 Range/Units 07:06 07:06 07:06 WBC 11.9 H (3.8-10.6) k/uL MCV 102.5 H (80.0-100.0) fL Neutrophils # 9.9 H (1.3-7.7) k/uL Chloride 109 H (98-107) mmol/L Glucose 116 H (74-99) mg/dL HDL Cholesterol 64.50 H (40.00-60.00) mg/dL Assessment and Plan (1) Cerebrovascular accident (CVA) Current Visit: Yes Status: Acute Code(s): I63.9 - CEREBRAL INFARCTION, UNSPECIFIED SNOMED Code(s): 580644169 Plan: Comments and plan: Patient's diagnosis gait disturbance related to stroke result in left hemiparesthesias and dysarthria. At this time safety concerns are noted and patient of course has appropriate diagnosis for possible inpatient rehab. Insurance will course require PT, OT, PRACTICE BUSINESS ASST notes. This was discussed with patient and family as well as neurologist.
[2022-05-06] MEDS: ATORVASTATIN 40 MG TAB PO SCH (19:57)
--- NOTE | 2022-05-07 00:09 | P.HPIM ---
History of Present Illness H&P Date: 05/06/22 Chief Complaint: Left-sided weakness Patient is a 81-year-old female with a known history of hypertension, osteoarthritis, history of basal cell cancer presents to ER with complaints of sudden onset of left-sided weakness and slurred speech. Patient states that she [place] walking in the barn and suddenly developed left-sided weakness and fell to the left side. Patient was brought to the hospital by EMS. According to the family., 2 days ago patient fell out of bed from sleep but did not have any focal deficit at the time. Denied any prior history of stroke. Currently patient is awake alert and oriented. Still having mouth deviation and slurred speech. Patient also failed swallow evaluation. CT head showed no acute intracranial hemorrhage or midline shift. CT angiogram of the head and neck showed no significant stenosis. CT cervical spine showed no acute fracture or dislocation. Patient was seen by stroke team in the ER and patient was not a tPA candidate. Laboratory showed WBC 16.4 hemoglobin 13.1 and platelets 185 Sodium 137 potassium 4.4 chloride 105 bicarb 27 BUN 21 creatinine 0.8 and blood sugar is 132. Calcium 8.2 Albumin 3.3 troponin negative Chest x-ray showed right basilar subsegmental atelectasis or early infiltrate. Fioricet Lasix. Patient was given a dose of IV antibiotics in the ER. Review of Systems Constitutional: Patient denies any fever or chills . no Generalized weakness. Abdomen: Patient denied any nausea or vomiting or abd. pain Cardiovascular: Patient denies any chest pain or short of breath no palpitations. Respiratory: patient denied any cough . no sputum production. No shortness of breath Neurologic: Patient denied any numbness or tingling headache. Patient does have left-sided weakness and slurred speech. Musculoskeletal: Patient denies any complaints of joint swelling or deformity. Left hip pain Complete review of systems could not be obtained from the patient except as per HPI. Past Medical History Past Medical History: Cancer, Hypertension, Osteoarthritis (OA) Additional Past Medical History / Comment(s): HX OF BACK SURGERIES WITH BACK PAIN. -USES CANE, HX OF BASAL CELL CANCER, left breast cancer History of Any Multi-Drug Resistant Organisms: None Reported Past Surgical History: Back Surgery Additional Past Surgical History / Comment(s): BACK SURGERY X6- HAS RODS (2018), left breast removal. Past Anesthesia/Blood Transfusion Reactions: Previous Problems w/ Anesthesia, Family History of Problems w/ Anesthesia Additional Past Anesthesia/Blood Transfusion Reaction / Comment(s): STATES DIFFICULTY WAKING UP- THEY TRIED DIFFERENT MEDS TO REVERSE ANESTHESIA. PATIENT STATES HER MOTHER ALSO HAD DIFFICULTY WAKING UP. Past Psychological History: No Psychological Hx Reported Additional Psychological History / Comment(s): PTS SPOUSE PASSED (OCTOBER 2019) Smoking Status: Never smoker Past Alcohol Use History: Occasional Additional Past Alcohol Use History / Comment(s): QUIT SMOKING 1977, SMOKED 2 CIGARETTES /DAY, STARTED SMOKING AGE 15. Past Drug Use History: None Reported - Past Family History Mother Family Medical History: Cancer, Pulmonary Embolus Additional Family Medical History / Comment(s): BREAST AND UTERINE CANCER Medications and Allergies Home Medications Medication Instructions Recorded Confirmed Type Cyclobenzaprine [Flexeril] 10 mg PO TID 08/02/19 05/05/22 History Etodolac [Lodine] 400 mg PO BID 08/02/19 05/05/22 History Gabapentin [Neurontin] 300 mg PO BID 08/02/19 05/05/22 History traMADol HCL [Ultram] 50 mg PO Q6H 08/02/19 05/05/22 History Metoprolol Succinate (ER) [Toprol 25 mg PO DAILY 07/17/20 05/05/22 History Xl] lisinopriL [Zestril] 40 mg PO HS 05/05/22 05/05/22 History Allergies Allergy/AdvReac Type Severity Reaction Status Date / Time No Known Allergies Allergy Verified 05/05/22 15:20 Physical Exam Vitals: Vital Signs Temp Pulse Pulse Resp BP BP Pulse Ox 05/06/22 08:04 91 L 05/06/22 07:46 98.1 F 79 18 146/81 96 05/06/22 04:00 99.4 F 101 H 18 150/73 96 05/06/22 01:47 103 H 16 05/06/22 00:00 100.0 F H 103 H 16 141/75 95 05/05/22 20:00 98.8 F 103 H 16 120/68 96 05/05/22 18:20 99.6 F 05/05/22 17:00 100 F H 104 H 18 150/77 94 L 05/05/22 16:26 105 H 16 164/96 94 L 05/05/22 14:37 98 21 153/77 95 05/05/22 12:52 95 16 135/76 96 Intake and Output 05/05/22 05/06/22 05/06/22 22:59 06:59 14:59 Output Total 550 Balance -550 Output: Urine 550 Other: Voiding Method Bedside Commode Bedside Commode Bedside Commode # Voids 1 1 1 # Bowel Movements 1 Weight 65 kg PHYSICAL EXAMINATION: Patient is lying in the bed comfortably, no acute distress, awake alert and oriented.. HEENT: Normocephalic. Neck is supple. Pupils reactive. Nostrils clear. Oral cavity is moist. Neck reveals no JVD, carotid bruits, or thyromegaly. CHEST EXAMINATION: Trachea is central. Symmetrical expansion. Lung rosales clear to auscultation and percussion. CARDIAC: Normal S1, S2 with no gallops. No murmurs ABDOMEN: Soft. Bowel sounds present. Nontender. No organomegaly. No abdominal bruits. Extremities: reveal no edema. No clubbing or cyanosis Neurologically awake, alert, oriented x3. Patient does have left-sided weakness and left lower facial droop., slurred speech Skin: No rash or skin lesions. Psychiatric: Coperative. Nonsuicidal, Musculoskeletal: No joint swelling or deformity. Results CBC & Chem 7: 05/06/22 07:06 05/06/22 07:06 Labs: Abnormal Lab Results - Last 24 Hours (Table) 05/05/22 05/05/22 05/05/22 Range/Units 12:49 13:30 13:30 WBC 16.5 H (3.8-10.6) k/uL MCV 102.1 H (80.0-100.0) fL Neutrophils # 15.0 H (1.3-7.7) k/uL Lymphocytes # 0.7 L (1.0-4.8) k/uL BUN 20 H (7-17) mg/dL Glucose 132 H (74-99) mg/dL POC Glucose (mg/dL) 117 H (70-110) mg/dL Calcium 8.2 L (8.4-10.2) mg/dL Total Protein 6.0 L (6.3-8.2) g/dL Albumin 3.3 L (3.5-5.0) g/dL Thrombosis Risk Factor Assmnt - DVT/VTE Prophylaxis DVT/VTE Prophylaxis: Pharmacologic Prophylaxis ordered Assessment and Plan Assessment: left-sided weakness with slurred speech secondary to acute CVA. Hypertension History of breast cancer status postsurgery 2 years ago History of substance carcinoma Osteoarthritis DVT prophylaxis Plan: Patient recorded on telemetry monitoring. Continue with aspirin and statins for secondary stroke prophylaxis. MRI of the brain was ordered. Patient was seen by [facility] and feels well evaluation. Currently nothing by mouth. Repeat swallow study tomorrow. Continue with neurochecks and follow-up closely. Neurology is on board. Time with Patient: Greater than 30
--- NOTE | 2022-05-07 08:00 | XR ---
EXAMINATION TYPE: XR chest 1V DATE OF EXAM: 05/07/2022 COMPARISON: 05/05/2022 HISTORY: Cough TECHNIQUE: Single frontal view of the chest is obtained. FINDINGS: Postsurgical change involving the vertebral column. Limited inspiration with elevated righ t hemidiaphragm. Subsegmental changes at the lung bases. Heart size normal. No pneumothorax. Arthropa thy of the shoulders. IMPRESSION: Basilar atelectasis favored over pneumonia correlate clinically.
[2022-05-07] MEDS: LIDOCAINE 5% PATCH TOPICAL SCH (08:15)
[2022-05-07] MEDS: HEPARIN SODIUM,PORCINE/PF 5,000 UNIT/0.5 ML SYRINGE SQ SCH ×2 (08:32→17:01)
[2022-05-07 08:53] LABS: Basophils % (A) 0 %; Eosinophils # (A) 0.1 k/uL (0-0.7); Eosinophils % (A) 1 %; HCT 43.1 % (34.0-46.0); HGB 14.2 gm/dL (11.4-16.0); Lymphocytes % (A) 11 %; MCH 33.6 pg (25.0-35.0); MCV 101.8 fL (80.0-100.0); Mean Platelet Volume 10.1; Monocytes # (A) 0.6 k/uL (0-1.0); Monocytes % (A) 7 %; Neutrophils # (A) 7.3 k/uL (1.3-7.7); Neutrophils % (A) 80 %; Platelet Count 211 k/uL (150-450); RBC 4.23 m/uL (3.80-5.40); RDW 12.6 % (11.5-15.5); WBC 9.1 k/uL (3.8-10.6)
[2022-05-07 09:03] LABS: African American GFR (CKD) >90 (>60 ml/min/1.73 sqM); Anion Gap 12 mmol/L; Blood Urea Nitrogen 16 mg/dL (7-17); Carbon Dioxide 21 mmol/L (22-30); Chloride 106 mmol/L (98-107); Glucose 109 mg/dL (74-99); Non-African American GFR(CKD) 83 (>60 ml/min/1.73 sqM); Potassium 3.7 mmol/L (3.5-5.1); Sodium 139 mmol/L (137-145)
[2022-05-07] MEDS: ASPIRIN 300 MG SUPP RECTAL SCH (10:08)
[2022-05-07] MEDS: AZITHROMYCIN 500 MG in SODIUM CHLORIDE 0.9% 250 ML IVPB SCH (10:10)
[2022-05-07] MEDS ORDERED: cloNIDine 0.1 MG/24HR PATCH TRANSDERM SCH (12:00)
--- NOTE | 2022-05-07 12:07 | P.PN ---
Subjective Progress Note Date: 05/07/22 The patient is seen at bedside and she had swallow evaluation yesterday and failed by speech therapy and per nurse are trying to have her swallow re- evaluated today. She still have weakness on left side but denies worsening of weakness. Objective - Vital Signs Vital signs: Vital Signs Temp 98.1 F 05/07/22 08:06 Pulse 113 H 05/07/22 10:49 Resp 18 05/07/22 10:49 BP 164/83 05/07/22 08:06 Pulse Ox 98 05/07/22 08:06 FiO2 Intake & Output 05/06/22 05/07/22 05/07/22 18:59 06:59 18:59 Output Total 1200 800 Balance -1200 -800 Output: Urine 1200 800 Other: Voiding Method Bedside Commode Bedside Commode Bedside Commode External Catheter External Catheter External Catheter # Voids 1 1 # Bowel Movements 1 - Exam GENERAL: The patient is lying in bed and is not in acute distress. NEUROLOGICAL: Higher mental function: The patient is awake, alert, oriented to self, time. She stated she was in the hospital but did not know the name. Patient is following simple commands. No aphasia and no neglect. Cranial nerves: The pupils are round, equal and reactive to light. Visual rosales are full to confrontation throughout. Extraocular movement is intact no nystagmus is noted. Facial sensation is normal to touch throughout. The facial strength is left lower facial droop. Tongue is midline and moved [id number] without any difficulty. Mild dysarthria is noted. Shoulder shrug is normal bilaterally. Motor: The strength is had some drift over the left upper and lower Decrease tone over the left side. Normal bulk. Sensation: Sensation is normal to touch throughout. Reflexes (right/left): 1+ throughout. Plantars are mute bilaterally. Some other workup during this hospital visit consisted of: Lipid panel: TG 89, Cholestrol 191, LDL 108, HDL 64 HbA1c: 5.9 Biting B12 is [address] of the head is reported as no acute intracranial hemorrhage or midline shift. CT of the c-spine is reported as there is no acute fracture or dislocation evident in the cervical spine. CT angiography of the head and neck was reported as no significant diameter reduction to account for the patient's symptoms. MRI Brain w/ and w/o: It is reported as acute ischemia right basal ganglia and centrum semiovalve measuring approximaltely 3.0 cmm Mild mass effect upon right lateral ventricle. Degenerative and extensive nonspecific white matter changes most typical remote ischemia. Exam is limited due to severe motion artifact particulary limitations the postcontrast images. 2D echo is reported as normal left ventricular dimension and systolic function. MV prolapse and mild to moderate MR. NO evidence for atrial septal defect. - Labs CBC & Chem 7: 05/07/22 08:29 05/07/22 08:29 Labs: Abnormal Lab Results - Last 24 Hours (Table) 05/06/22 05/06/22 05/07/22 Range/Units 07:06 07:06 08:29 WBC 11.9 H (3.8-10.6) k/uL MCV 102.5 H 101.8 H (80.0-100.0) fL Neutrophils # 9.9 H (1.3-7.7) k/uL Chloride 109 H (98-107) mmol/L Carbon Dioxide (22-30) mmol/L Glucose 116 H (74-99) mg/dL 05/07/22 Range/Units 08:29 WBC (3.8-10.6) k/uL MCV (80.0-100.0) fL Neutrophils # (1.3-7.7) k/uL Chloride (98-107) mmol/L Carbon Dioxide 21 L (22-30) mmol/L Glucose 109 H (74-99) mg/dL Microbiology - Last 24 Hours (Table) 05/05/22 16:10 Blood Culture - Preliminary Blood No Growth after 24 hours 05/05/22 15:55 Blood Culture - Preliminary Blood No Growth after 24 hours Assessment and Plan Assessment: Acute left facial weakness and left-sided hemiparesis with dysarthria due to acute ischemic stroke (MRI Brain acute ischemia right basal ganglia and centrum semiovalve). Etiology of stroke is small vessel disease due to patients risk factors (HTN, age). Dysphagia due to above Hypertension Very low Vitamin B12 (285) History of left breast cancer s/p resection about 2 years ago Basal cell carcinoma Plan: Will have speech therapy revaluated swallow. If unable to swallow, consider NG tube or PEG tube. She is on ASA 300mg suppository but able to swallow change to ASA 325mg daily and stated on Plavix 75mg daily. To be on dual antiplatelets 21 days and after 21 days, stop Plavix but continue ASA indefinitely. Continue Lipitor 40mg qhs for secondary stroke prophylaxis (LDL goal in stroke <70). PT OT and [facility] are consulted. Consulted Dr. Null for possible inpatient rehab. Continue neuro checks Placed on cardiac monitoring For severely low normal Vitamin B12, I will start on IM 1000mcg daily for 3 days then switch to PO after that. Defer the rest of the medical management to the primary team For DVT prophylaxis: subcu heparin 5000 units every hours. The plan is discussed with patient and her son. Dr. Trujillo will start neurology service tomorrow and Edith will start this Tuesday A.M. Time with Patient: Less than 30
[2022-05-07] MEDS: CLOPIDOGREL 75 MG TAB PO SCH (12:21)
[2022-05-07] MEDS: METOPROLOL SUCCINATE (ER) 25 MG TAB.ER.24H PO SCH (12:22)
[2022-05-07] MEDS: CYANOCOBALAMIN 1,000 MCG/ML 1 ML VIAL IM SCH (12:51)
[2022-05-07] MEDS: ATORVASTATIN 40 MG TAB PO SCH (22:16)
[2022-05-08] MEDS: HEPARIN SODIUM,PORCINE/PF 5,000 UNIT/0.5 ML SYRINGE SQ SCH ×3 (00:09→16:35)
[2022-05-08] MEDS: ACETAMINOPHEN SUPPOSITORY 650 MG SUPP RECTAL PRN (01:26)
[2022-05-08] MEDS: AZITHROMYCIN 500 MG in SODIUM CHLORIDE 0.9% 250 ML IVPB SCH (09:01)
[2022-05-08] MEDS: LIDOCAINE 5% PATCH TOPICAL SCH (09:01)
[2022-05-08] MEDS: ASPIRIN 325 MG TAB PO SCH (09:02)
[2022-05-08] MEDS: METOPROLOL SUCCINATE (ER) 25 MG TAB.ER.24H PO SCH (09:02)
[2022-05-08] MEDS: CLOPIDOGREL 75 MG TAB PO SCH (09:02)
[2022-05-08] MEDS: CYANOCOBALAMIN 1,000 MCG/ML 1 ML VIAL IM SCH (09:02)
--- NOTE | 2022-05-08 14:08 | P.PN ---
Subjective Progress Note Date: 05/08/22 Principal diagnosis: acute infarct of the right basal ganglia The patient is seen in neurologic follow-up on May 08, 2022, via teleneurology. The chart has been reviewed. MRI of the brain reports an acute right basal ganglia infarct. The patient states that she continues to have left sided weakness. At the time of today's evaluation, the patient has her lunch tray sitting in front of her. I am unable to find any documentation speech therapy however, the patient reports that she is able to eat. She states that she does not require any assistance with eating. Objective - Vital Signs Vital signs: Vital Signs Temp 98.2 F 05/08/22 08:00 Pulse 101 H 05/08/22 08:00 Resp 18 05/08/22 12:20 BP 179/112 05/08/22 08:00 Pulse Ox 95 05/08/22 12:19 FiO2 Intake & Output 05/07/22 05/08/22 05/08/22 18:59 06:59 18:59 Intake Total 118 180 Output Total 150 Balance -150 118 180 Intake: Oral 118 180 Output: Urine/Stool Mix 150 Other: Voiding Method Bedside Commode Bedside Commode External Catheter External Catheter # Voids 1 1 # Bowel Movements 1 1 - Exam Gen.: The patient is seated in the bed. She is well-nourished, well-developed and in no acute distress. HEENT: Head is atraumatic, normocephalic. Fundus not visualized. There is no scleral icterus. Mucous membranes are moist. Heart: Regular rate and rhythm Neurological examination Mental status: The patient is awake, alert and oriented 3. Her speech is clear. Cranial nerves: Pupils are equal at 3 mm and reactive. There is a left facial droop. There is diminished elevation of the left shoulder. Motor: Left biceps and triceps strength 3-4/5. Right upper extremity strength 5/5. Sensation: Grossly intact to light touch - Labs CBC & Chem 7: 05/07/22 08:29 05/07/22 08:29 Labs: Microbiology - Last 24 Hours (Table) 05/05/22 16:10 Blood Culture - Preliminary Blood No Growth after 48 hours 05/05/22 15:55 Blood Culture - Preliminary Blood No Growth after 48 hours Assessment and Plan Assessment: 1. 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 According to review of the chart, the patient is on a modified diet 2. History of hypertension 3. Very low Vitamin B12 (285) 4. History of left breast cancer s/p resection about 2 years ago 5. Basal cell carcinoma Plan: 1. ASA 325mg daily and stated on Plavix 75mg daily. To be on dual antiplatelets 21 days and after 21 days, stop Plavix but continue ASA indefinitely. Continue Lipitor 40mg qhs for secondary stroke prophylaxis (LDL goal in stroke <70). 2. For severely low normal Vitamin B12, I will start on IM 1000mcg daily for 3 days then switch to PO after that. 3. Case management for safe discharge plan No further neurologic intervention is indicated at this time. Neurology will sign off. The patient should follow up with her family doctor for further stroke prevention. Please call with questions or concerns Time with Patient: Less than 30 (Spent 20 minutes examining patient and discussing symptoms, test results and discharge planning. Spent another 10 minutes reviewing documentation, labs and preparing this note)
[2022-05-08] MEDS: traMADol 50 MG TAB PO SCH ×2 (16:41→20:08)
[2022-05-08] MEDS: ATORVASTATIN 40 MG TAB PO SCH (20:08)
[2022-05-09] MEDS: HEPARIN SODIUM,PORCINE/PF 5,000 UNIT/0.5 ML SYRINGE SQ SCH ×4 (00:17→22:58)
[2022-05-09] MEDS: CLOPIDOGREL 75 MG TAB PO SCH (09:19)
[2022-05-09] MEDS: CYANOCOBALAMIN 1,000 MCG/ML 1 ML VIAL IM SCH (09:19)
[2022-05-09] MEDS: ASPIRIN 325 MG TAB PO SCH (09:19)
[2022-05-09] MEDS: LIDOCAINE 5% PATCH TOPICAL SCH (09:19)
[2022-05-09] MEDS: traMADol 50 MG TAB PO SCH ×4 (09:20→20:59)
[2022-05-09] MEDS: METOPROLOL SUCCINATE (ER) 25 MG TAB.ER.24H PO SCH (09:20)
[2022-05-09] MEDS: ATORVASTATIN 40 MG TAB PO SCH (20:59)
--- NOTE | 2022-05-10 | P.PN ---
Subjective Progress Note Date: 05/07/22 Patient is a 81-year-old female with a known history of hypertension, osteoarthritis, history of basal cell cancer presents to ER with complaints of sudden onset of left-sided weakness and slurred speech. Patient states that she was walking in the barn and suddenly developed left-sided weakness and fell to the left side. Patient was brought to the hospital by EMS. According to the family., 2 days ago patient fell out of bed from sleep but did not have any focal deficit at the time. Denied any prior history of stroke. Currently patient is awake alert and oriented. Still having mouth deviation and slurred speech. Patient also failed swallow evaluation. CT head showed no acute intracranial hemorrhage or midline shift. CT angiogram of the head and neck showed no significant stenosis. CT cervical spine showed no acute fracture or dislocation. Patient was seen by stroke team in the ER and patient was not a tPA candidate. Laboratory showed WBC 16.4 hemoglobin 13.1 and platelets 185 Sodium 137 potassium 4.4 chloride 105 bicarb 27 BUN 21 creatinine 0.8 and blood sugar is 132. Calcium 8.2 Albumin 3.3 troponin negative Chest x-ray showed right basilar subsegmental atelectasis or early infiltrate. Fioricet Lasix. Patient was given a dose of IV antibiotics in the ER. 05/07/2022 Patient currently lying in bed. Awake alert and oriented x3. Patient currently getting around due to spatial evaluation. Still having left-sided weakness. Blood pressure is elevated and will start on Catapres patch. No complaints of chest pain or shortness of breath. Today echocardiogram showed normal left ventricle systolic function. Mitral prolapse and mild to moderate MR. No evidence of atrial septal defect. Laboratory tests were WBC 9.1 hemoglobin 14.1 platelets 211 Neurology is on board. PM&R was consulted. For possible rehab transfer. Objective - Vital Signs Vital signs: Vital Signs Temp 98.3 F 05/07/22 20:21 Pulse 105 H 05/07/22 20:26 Resp 18 05/07/22 20:26 BP 159/84 05/07/22 20:21 Pulse Ox 96 05/07/22 20:21 FiO2 Intake & Output 05/07/22 05/07/22 05/08/22 06:59 18:59 06:59 Output Total 800 150 Balance -800 -150 Output: Urine 800 Urine/Stool Mix 150 Other: Voiding Method Bedside Commode Bedside Commode Bedside Commode External Catheter External Catheter External Catheter # Voids 1 1 # Bowel Movements 1 - Exam PHYSICAL EXAMINATION: Patient is lying in the bed comfortably, no acute distress, awake alert and oriented.. HEENT: Normocephalic. Neck is supple. Pupils reactive. Nostrils clear. Oral cavity is moist. Neck reveals no JVD, carotid bruits, or thyromegaly. CHEST EXAMINATION: Trachea is central. Symmetrical expansion. Lung rosales clear to auscultation and percussion. CARDIAC: Normal S1, S2 with no gallops. No murmurs ABDOMEN: Soft. Bowel sounds present. Nontender. No organomegaly. No abdominal bruits. Extremities: reveal no edema. No clubbing or cyanosis Neurologically awake, alert, oriented x3. Patient does have left-sided weakness and left lower facial droop., slurred speech Skin: No rash or skin lesions. Psychiatric: Coperative. Nonsuicidal, Musculoskeletal: No joint swelling or deformity. - Labs CBC & Chem 7: 05/07/22 08:29 05/07/22 08:29 Labs: Abnormal Lab Results - Last 24 Hours (Table) 05/07/22 05/07/22 Range/Units 08:29 08:29 MCV 101.8 H (80.0-100.0) fL Carbon Dioxide 21 L (22-30) mmol/L Glucose 109 H (74-99) mg/dL Microbiology - Last 24 Hours (Table) 05/05/22 16:10 Blood Culture - Preliminary Blood No Growth after 48 hours 05/05/22 15:55 Blood Culture - Preliminary Blood No Growth after 48 hours Assessment and Plan Assessment: left-sided weakness with slurred speech secondary to acute CVA. Hypertension History of breast cancer status postsurgery 2 years ago History of substance carcinoma Osteoarthritis DVT prophylaxis Plan: Patient recorded on telemetry monitoring. Continue with aspirin and statins for secondary stroke prophylaxis. MRI of the brain was ordered. Patient was seen by SHERIFF DETECTIVE and failed swallowevaluation. Currently nothing by mouth. Repeat swallow study tomorrow. Continue with neurochecks and follow-up closely. Neurology is on board. Time with Patient: Greater than 30
--- NOTE | 2022-05-10 00:03 | P.PN ---
Subjective Progress Note Date: 05/08/22 Patient is a 81-year-old female with a known history of hypertension, osteoarthritis, history of basal cell cancer presents to ER with complaints of sudden onset of left-sided weakness and slurred speech. Patient states that she was walking in the barn and suddenly developed left-sided weakness and fell to the left side. Patient was brought to the hospital by EMS. According to the family., 2 days ago patient fell out of bed from sleep but did not have any focal deficit at the time. Denied any prior history of stroke. Currently patient is awake alert and oriented. Still having mouth deviation and slurred speech. Patient also failed swallow evaluation. CT head showed no acute intracranial hemorrhage or midline shift. CT angiogram of the head and neck showed no significant stenosis. CT cervical spine showed no acute fracture or dislocation. Patient was seen by stroke team in the ER and patient was not a tPA candidate. Laboratory showed WBC 16.4 hemoglobin 13.1 and platelets 185 Sodium 137 potassium 4.4 chloride 105 bicarb 27 BUN 21 creatinine 0.8 and blood sugar is 132. Calcium 8.2 Albumin 3.3 troponin negative Chest x-ray showed right basilar subsegmental atelectasis or early infiltrate. Fioricet Lasix. Patient was given a dose of IV antibiotics in the ER. 05/07/2022 Patient currently lying in bed. Awake alert and oriented x3. Patient currently getting around due to spatial evaluation. Still having left-sided weakness. Blood pressure is elevated and will start on Catapres patch. No complaints of chest pain or shortness of breath. Today echocardiogram showed normal left ventricle systolic function. Mitral prolapse and mild to moderate MR. No evidence of atrial septal defect. Laboratory tests were WBC 9.1 hemoglobin 14.1 platelets 211 Neurology is on board. PM&R was consulted. For possible rehab transfer. 05/08/2022 Patient is currently lying in bed. Awake alert and oriented x3. He is more agitated today. Was able to swallow liquids and apple sauce. No complaints of shortness of breath. No cough or sputum production. No nausea vomiting abdominal pain. Patient is tolerating PTOT. No other acute overnight changes. Blood pressure is fairly controlled Patient will be restarted back on home blood pressure medications by mouth.. Objective - Vital Signs Vital signs: Vital Signs Temp 98 F 05/08/22 15:09 Pulse 103 H 05/08/22 15:09 Resp 16 05/08/22 15:09 BP 146/91 05/08/22 15:09 Pulse Ox 96 05/08/22 15:09 FiO2 Intake & Output 05/08/22 05/08/22 05/09/22 06:59 18:59 06:59 Intake Total 118 540 Balance 118 540 Intake: Oral 118 540 Other: Voiding Method Bedside Commode External Catheter # Voids 1 # Bowel Movements 1 - Exam PHYSICAL EXAMINATION: Patient is lying in the bed comfortably, no acute distress, awake alert and oriented.. HEENT: Normocephalic. Neck is supple. Pupils reactive. Nostrils clear. Oral cavity is moist. Neck reveals no JVD, carotid bruits, or thyromegaly. CHEST EXAMINATION: Trachea is central. Symmetrical expansion. Lung rosales clear to auscultation and percussion. CARDIAC: Normal S1, S2 with no gallops. No murmurs ABDOMEN: Soft. Bowel sounds present. Nontender. No organomegaly. No abdominal bruits. Extremities: reveal no edema. No clubbing or cyanosis Neurologically awake, alert, oriented x3. Patient does have left-sided weakness and left lower facial droop., slurred speech Skin: No rash or skin lesions. Psychiatric: Coperative. Nonsuicidal, Musculoskeletal: No joint swelling or deformity. - Labs CBC & Chem 7: 05/07/22 08:29 05/07/22 08:29 Labs: Microbiology - Last 24 Hours (Table) 05/05/22 16:10 Blood Culture - Preliminary Blood No Growth after 72 hours 05/05/22 15:55 Blood Culture - Preliminary Blood No Growth after 72 hours Assessment and Plan Assessment: left-sided weakness with slurred speech secondary to acute CVA. Hypertension History of breast cancer status postsurgery 2 years ago History of substance carcinoma Osteoarthritis DVT prophylaxis Plan: Patient recorded on telemetry monitoring. Continue with aspirin and statins for secondary stroke prophylaxis. MRI of the brain Showed infarct in the basal ganglia. Patient was initially kept nothing by mouth due to failed swallow evaluation. Currently patient is able to swallow and was started on oral diet... Continue with neurochecks and follow-up closely. Neurology is on board. Time with Patient: Greater than 30
--- NOTE | 2022-05-10 00:10 | P.PN ---
Subjective Progress Note Date: 05/09/22 Patient is a 81-year-old female with a known history of hypertension, osteoarthritis, history of basal cell cancer presents to ER with complaints of sudden onset of left-sided weakness and slurred speech. Patient states that she was walking in the barn and suddenly developed left-sided weakness and fell to the left side. Patient was brought to the hospital by EMS. According to the family., 2 days ago patient fell out of bed from sleep but did not have any focal deficit at the time. Denied any prior history of stroke. Currently patient is awake alert and oriented. Still having mouth deviation and slurred speech. Patient also failed swallow evaluation. CT head showed no acute intracranial hemorrhage or midline shift. CT angiogram of the head and neck showed no significant stenosis. CT cervical spine showed no acute fracture or dislocation. Patient was seen by stroke team in the ER and patient was not a tPA candidate. Laboratory showed WBC 16.4 hemoglobin 13.1 and platelets 185 Sodium 137 potassium 4.4 chloride 105 bicarb 27 BUN 21 creatinine 0.8 and blood sugar is 132. Calcium 8.2 Albumin 3.3 troponin negative Chest x-ray showed right basilar subsegmental atelectasis or early infiltrate. Fioricet Lasix. Patient was given a dose of IV antibiotics in the ER. 05/07/2022 Patient currently lying in bed. Awake alert and oriented x3. Patient currently getting around due to spatial evaluation. Still having left-sided weakness. Blood pressure is elevated and will start on Catapres patch. No complaints of chest pain or shortness of breath. Today echocardiogram showed normal left ventricle systolic function. Mitral prolapse and mild to moderate MR. No evidence of atrial septal defect. Laboratory tests were WBC 9.1 hemoglobin 14.1 platelets 211 Neurology is on board. PM&R was consulted. For possible rehab transfer. 05/08/2022 Patient is currently lying in bed. Awake alert and oriented x3. He is more agitated today. Was able to swallow liquids and apple sauce. No complaints of shortness of breath. No cough or sputum production. No nausea vomiting abdominal pain. Patient is tolerating PTOT. No other acute overnight changes. Blood pressure is fairly controlled Patient will be restarted back on home blood pressure medications by mouth.. 05/09/2022 Patient is currently resting in the bed. Awake alert and oriented x3. Still having left sided weakness. Speech is much improved. Able to swallow without any difficulty. Patient will be continued on PT OT and possible discharge to rehab in next 24 hours. Blood pressure history of A. fib. Continue with metoprolol and start back on lisinopril dose. Catapres patch has been discontinued. Patient was initially started on ceftriaxone for possible pneumonia. Complete for 5 days. Objective - Vital Signs Vital signs: Vital Signs Temp 98.2 F 05/09/22 12:00 Pulse 93 05/09/22 12:00 Resp 18 05/09/22 12:00 BP 158/60 05/09/22 12:00 Pulse Ox 95 05/09/22 12:00 FiO2 Intake & Output 05/08/22 05/09/22 05/09/22 18:59 06:59 18:59 Intake Total 540 Output Total 450 Balance 540 -450 Intake: Oral 540 Output: Urine 450 Other: Voiding Method Bedside Commode # Voids 1 # Bowel Movements 1 - Exam PHYSICAL EXAMINATION: Patient is lying in the bed comfortably, no acute distress, awake alert and oriented.. HEENT: Normocephalic. Neck is supple. Pupils reactive. Nostrils clear. Oral cavity is moist. Neck reveals no JVD, carotid bruits, or thyromegaly. CHEST EXAMINATION: Trachea is central. Symmetrical expansion. Lung rosales clear to auscultation and percussion. CARDIAC: Normal S1, S2 with no gallops. No murmurs ABDOMEN: Soft. Bowel sounds present. Nontender. No organomegaly. No abdominal bruits. Extremities: reveal no edema. No clubbing or cyanosis Neurologically awake, alert, oriented x3. Patient does have left-sided weakness and left lower facial droop., slurred speech Skin: No rash or skin lesions. Psychiatric: Coperative. Nonsuicidal, Musculoskeletal: No joint swelling or deformity. - Labs CBC & Chem 7: 05/07/22 08:29 05/07/22 08:29 Labs: Microbiology - Last 24 Hours (Table) 05/05/22 16:10 Blood Culture - Preliminary Blood No Growth after 72 hours 05/05/22 15:55 Blood Culture - Preliminary Blood No Growth after 72 hours Assessment and Plan Assessment: left-sided weakness with slurred speech secondary to acute CVA. Possible pneumonia Hypertension. uncontroled. History of breast cancer status postsurgery 2 years ago History of Basal cell carcinoma Osteoarthritis DVT prophylaxis Plan: Patient recorded on telemetry monitoring. Continue with aspirin and statins for secondary stroke prophylaxis. MRI of the brain Showed infarct in the basal ganglia. Patient was initially kept nothing by mouth due to failed swallow evaluation. Currently patient is able to swallow and was started on oral diet... Continue with neurochecks and follow-up closely. Neurology is on board. Plans for discharge to rehab Time with Patient: Greater than 30
[2022-05-10 08:08] LABS: African American GFR (CKD) >90 (>60 ml/min/1.73 sqM); Anion Gap 6 mmol/L; Basophils % (A) 0 %; Blood Urea Nitrogen 19 mg/dL (7-17); Calcium 8.7 mg/dL (8.4-10.2); Carbon Dioxide 28 mmol/L (22-30); Chloride 106 mmol/L (98-107); Eosinophils # (A) 0.1 k/uL (0-0.7); Eosinophils % (A) 2 %; Glucose 119 mg/dL (74-99); HCT 40.1 % (34.0-46.0); HGB 13.4 gm/dL (11.4-16.0); Lymphocytes # (A) 1.1 k/uL (1.0-4.8); Lymphocytes % (A) 24 %; MCH 33.4 pg (25.0-35.0); MCHC 33.5 g/dL (31.0-37.0); MCV 99.8 fL (80.0-100.0); Mean Platelet Volume 10.1; Monocytes # (A) 0.5 k/uL (0-1.0); Monocytes % (A) 10 %; Neutrophils # (A) 2.8 k/uL (1.3-7.7); Neutrophils % (A) 59 %; Non-African American GFR(CKD) 81 (>60 ml/min/1.73 sqM); Platelet Count 189 k/uL (150-450); Potassium 3.5 mmol/L (3.5-5.1); RBC 4.01 m/uL (3.80-5.40); RDW 12.9 % (11.5-15.5); Sodium 140 mmol/L (137-145); WBC 4.7 k/uL (3.8-10.6)
[2022-05-10] MEDS ORDERED: POTASSIUM CHLORIDE ER 20 MEQ TAB.ER PO STA (09:01)
[2022-05-10] MEDS: lisinopriL 20 MG TAB PO SCH (09:03)
[2022-05-10] MEDS: HEPARIN SODIUM,PORCINE/PF 5,000 UNIT/0.5 ML SYRINGE SQ SCH ×3 (09:03→22:59)
[2022-05-10] MEDS: ASPIRIN 325 MG TAB PO SCH (09:03)
[2022-05-10] MEDS: CLOPIDOGREL 75 MG TAB PO SCH (09:04)
[2022-05-10] MEDS: traMADol 50 MG TAB PO SCH ×4 (09:04→22:59)
[2022-05-10] MEDS: METOPROLOL SUCCINATE (ER) 25 MG TAB.ER.24H PO SCH (09:04)
[2022-05-10] MEDS: CYANOCOBALAMIN 500 MCG TAB PO SCH (09:04)
[2022-05-10] MEDS: LIDOCAINE 5% PATCH TOPICAL SCH (09:05)
--- NOTE | 2022-05-10 14:53 | P.PN ---
Subjective Progress Note Date: 05/10/22 Patient is a 81-year-old female with a known history of hypertension, osteoarthritis, history of basal cell cancer presents to ER with complaints of sudden onset of left-sided weakness and slurred speech. Patient states that she was walking in the barn and suddenly developed left-sided weakness and fell to the left side. Patient was brought to the hospital by EMS. According to the family., 2 days ago patient fell out of bed from sleep but did not have any focal deficit at the time. Denied any prior history of stroke. Currently patient is awake alert and oriented. Still having mouth deviation and slurred speech. Patient also failed swallow evaluation. CT head showed no acute intracranial hemorrhage or midline shift. CT angiogram of the head and neck showed no significant stenosis. CT cervical spine showed no acute fracture or dislocation. Patient was seen by stroke team in the ER and patient was not a tPA candidate. Laboratory showed WBC 16.4 hemoglobin 13.1 and platelets 185 Sodium 137 potassium 4.4 chloride 105 bicarb 27 BUN 21 creatinine 0.8 and blood sugar is 132. Calcium 8.2 Albumin 3.3 troponin negative Chest x-ray showed right basilar subsegmental atelectasis or early infiltrate. Fioricet Lasix. Patient was given a dose of IV antibiotics in the ER. 05/07/2022 Patient currently lying in bed. Awake alert and oriented x3. Patient currently getting around due to spatial evaluation. Still having left-sided weakness. Blood pressure is elevated and will start on Catapres patch. No complaints of chest pain or shortness of breath. Today echocardiogram showed normal left ventricle systolic function. Mitral prolapse and mild to moderate MR. No evidence of atrial septal defect. Laboratory tests were WBC 9.1 hemoglobin 14.1 platelets 211 Neurology is on board. PM&R was consulted. For possible rehab transfer. 05/08/2022 Patient is currently lying in bed. Awake alert and oriented x3. He is more agitated today. Was able to swallow liquids and apple sauce. No complaints of shortness of breath. No cough or sputum production. No nausea vomiting abdominal pain. Patient is tolerating PTOT. No other acute overnight changes. Blood pressure is fairly controlled Patient will be restarted back on home blood pressure medications by mouth.. 05/09/2022 Patient is currently resting in the bed. Awake alert and oriented x3. Still having left sided weakness. Speech is much improved. Able to swallow without any difficulty. Patient will be continued on PT OT and possible discharge to rehab in next 24 hours. Blood pressure history of A. fib. Continue with metoprolol and start back on lisinopril dose. Catapres patch has been discontinued. Patient was initially started on ceftriaxone for possible pneumonia. Complete for 5 days. 05/10/2022 Patient is resting in bed with family at bedside today. Patient is awake alert x3. Continues with left sided weakness about 4/5. Speech has improved. Speech therapy re-evaluation today shows high risk for aspiration and patient was tolerating honey thick. Recommended to undergo stat barium swallow today. For this reason discharge to [facility] was postponed tentative for tomorrow now. Labs today are unremarkable, white count 4.7. Potassium 3.5 and one time oral 40 meq given. Continues on dual antiplatelet therapy with aspirin and plavix. Blood pressure 124/74. Review of Systems Constitutional: Denied any fatigue denied any fever. Cardio vascular: denied any chest pain, palpitations Gastrointestinal: denied any nausea, vomiting, diarrhea Pulmonary: Denied any shortness of breath cough Neurologic denied any new focal deficits All inpatient medications were reviewed and appropriate changes in these medications as dictated in the interval history and assessment and plan. PHYSICAL EXAMINATION: Patient is lying in the bed comfortably, no acute distress, awake alert and oriented.. HEENT: Normocephalic. Neck is supple. Pupils reactive. Nostrils clear. Oral cavity is moist. Neck reveals no JVD, carotid bruits, or thyromegaly. CHEST EXAMINATION: Trachea is central. Symmetrical expansion. Lung rosales clear to auscultation and percussion. CARDIAC: Normal S1, S2 with no gallops. No murmurs ABDOMEN: Soft. Bowel sounds present. Nontender. No organomegaly. No abdominal bruits. Extremities: reveal no edema. No clubbing or cyanosis Neurologically awake, alert, oriented x3. Patient does have left-sided weakness and left lower facial droop., slurred speech Skin: No rash or skin lesions. Psychiatric: Coperative. Nonsuicidal, Musculoskeletal: No joint swelling or deformity. Assessment and Plan Assessment Left-sided weakness and slurred speech secondary to acute right basal ganglia Possible pneumonia more likely atelectasis Hypertension. uncontroled. History of breast cancer status post surgery 2 years ago History of Basal cell carcinoma Osteoarthritis DVT prophylaxis GI prophylaxis No Code Plan Continue statin, dual antiplatelet therapy Plavix to be discontinued after 21 days Patient currently on dysphagia level 2 ground diet with nectar thick liquids and aspiration precautions Modified barium swallow ordered for today. Discharge to [facility] pending barium swallow most likely will discharge tomorrow. The impression and plan of care has been dictated by Sakshi Mackey Nurse Practitioner as directed. Dr. Jatinder MD I have performed a history and physical examination and medical decision making of this patient, discussed the same with the dictator, and agree with the dictators assessment and plan as written, documented as a scribe. Based on total visit time, I have performed more than 50% of this visit. Objective - Vital Signs Vital signs: Vital Signs Temp 98.2 F 05/10/22 12:00 Pulse 69 05/10/22 12:00 Resp 17 05/10/22 12:00 BP 124/74 05/10/22 12:00 Pulse Ox 98 05/10/22 12:00 FiO2 Intake & Output 05/09/22 05/10/22 05/10/22 18:59 06:59 18:59 Intake Total 240 236 Output Total 650 350 Balance -650 -110 236 Intake: Oral 240 236 Output: Urine 650 350 Other: Voiding Method Bedside Commode - Labs CBC & Chem 7: 05/10/22 07:06 05/10/22 07:06 Labs: Abnormal Lab Results - Last 24 Hours (Table) 05/10/22 Range/Units 07:06 BUN 19 H (7-17) mg/dL Glucose 119 H (74-99) mg/dL Microbiology - Last 24 Hours (Table) 05/05/22 16:10 Blood Culture - Preliminary Blood No Growth after 96 hours 05/05/22 15:55 Blood Culture - Preliminary Blood No Growth after 96 hours
--- NOTE | 2022-05-10 15:45 | FL ---
EXAMINATION TYPE: FL barium swallow w video DATE OF EXAM: 05/10/2022 MODIFIED SWALLOW / DEGLUTITION STUDY CLINICAL HISTORY: Dysphagia. Rule out aspiration. TECHNIQUE: Deglutition study is performed utilizing thin liquid barium, honey and nectar thick liqui d barium, barium thick applesauce, and barium coated cracker. 2 minutes 57 seconds of fluoro time an d 0 images obtained. COMPARISON: None. FINDINGS: The oral and pharyngeal phases show satisfactory initiation and propagation with all modali ties tested. Satisfactory mastication is seen with solid modalities tested. There is transient penet ration with thin liquid barium and nectar thick liquid barium which improves with chin tuck technique . No aspiration seen. No significant pharyngeal residue was appreciated. IMPRESSION: No aspiration observed. Please refer to speech therapist notes for further details if reynaldo espino.
[2022-05-10] MEDS: ATORVASTATIN 40 MG TAB PO SCH (20:47)
[2022-05-11] MEDS: HEPARIN SODIUM,PORCINE/PF 5,000 UNIT/0.5 ML SYRINGE SQ SCH (10:04)
[2022-05-11] MEDS: ASPIRIN 325 MG TAB PO SCH (10:05)
[2022-05-11] MEDS: CYANOCOBALAMIN 500 MCG TAB PO SCH (10:06)
[2022-05-11] MEDS: METOPROLOL SUCCINATE (ER) 25 MG TAB.ER.24H PO SCH (10:06)
[2022-05-11] MEDS: CLOPIDOGREL 75 MG TAB PO SCH (10:06)
[2022-05-11] MEDS: traMADol 50 MG TAB PO SCH ×2 (10:06→12:36)
[2022-05-11] MEDS: lisinopriL 20 MG TAB PO SCH (10:06)
[2022-05-11] MEDS: LIDOCAINE 5% PATCH TOPICAL SCH (10:07)
[2022-05-11 10:55] VITALS: PULSE 80
[2022-05-11 11:30] VITALS: BP 131/78; RESP 16; TEMP 98
[2022-05-11 11:54] VITALS: BMI 23.1
--- NOTE | 2022-05-11 12:52 | P.DS ---
Providers Date of admission: 05/05/22 14:52 Attending physician: Garry Alvarenga Consults: 05/05/22 14:48 Consult Physician Routine Consulting Provider: Shane Reed Consult Reason/Comments: CVA Do you want consulting provider notified?: Yes 05/06/22 13:43 Consult Physician Routine Consulting Provider: Kal Null Consult Reason/Comments: stroke. Inpatient rehab Do you want consulting provider notified?: Yes Primary care physician: Kal Hill Hospital Course: Final Diagnosis Left-sided weakness and slurred speech secondary to acute right basal ganglia Possible pneumonia more likely atelectasis Hypertension. uncontrolled. History of breast cancer status post surgery 2 years ago History of Basal cell carcinoma Osteoarthritis DVT prophylaxis GI prophylaxis No Code Discharge Disposition Patient is stable for discharge to [facility] subacute rehab. Patient to continue on dual antiplatelet therapy for 21 days than discontinue plavix and continue on aspirin 325 mg po daily. Patient is also discharged on lipitor 40 mg HS. Patient will not require antibiotics on discharge, complete course of antibiotics with IV ceftriaxone and clinically pneumonia unlikely. Diet has been downgraded to ground dysphagia level 2 with honey thick liquids and no straws. Encourage chin tuck posturing with meals and also continue with aspiration precautions. Patient to follow up with primary care on discharge Dr. Hill and also recommend to follow up with a neurologist. Hospital Course Patient is a 81-year-old female with a known history of hypertension, osteoarthritis, history of basal cell cancer presents to ER with complaints of sudden onset of left-sided weakness and slurred speech. Patient states that [place] and suddenly developed left-sided weakness and fell to the left side. Patient was brought to the hospital by EMS. According to the family., 2 days ago patient fell out of bed from sleep but did not have any focal deficit at the time. Denied any prior history of stroke. Patient does have mouth deviation and slurred speech. Patient also failed swallow evaluation and [employer] was consulted. CT head showed no acute intracranial hemorrhage or midline shift. CT angiogram of the head and neck showed no significant stenosis. CT cervical spine showed no acute fracture or dislocation. Patient was seen by stroke team in the ER and patient was not a tPA candidate. Patient admitted to the hospital and neurology consulted. She underwent echocardiogram showed normal left ventricle systolic function. Mitral prolapse and mild to moderate MR. No evidence of atrial septal defect. Patient had continued symptoms of left facial droop with slurred speech improving somewhat and also left sided weakness. She underwent MRI brain with and without contrast showing acute ischemia right basal ganglina and centrum semiovale measuring about 3.0 cm with mild mass effect upon the right lateral ventricle. Speech therapy re-evaluation shows high risk for aspiration and diet was downgraded to above mentioned recommendations after undergoing barium swallow. Patient did have mild leukocytosis on admission 16.5 and was started on empiric antibiotic coverage with IV ceftriaxone with xray showing possible pneumonia more likely atelectasis and she improved clinically. Course of antibiotics complete and will not require antibiotics on discharge. White count has normalized to 4.7. Cleared by neurology for discharge. 05/10/2022 Patient is evaluated today sitting up in bed. Overall reports feeling better. She is tolerating dysphagia diet and honey thick liquids. She is not coughing with meals. She denies shortness of breath, denies chest pain. No nausea, vomiting, or diarrhea. Slurred speech is improving. Has some residual left sided weakness upper and lower extremity. Lungs are clear, S1 S2 auscultated alert x 3. Most recent labs showing white count of 4.7, hgb 13.4, sodium 140, potassium 3.5, BUN 19, creatinine 0.69, glucose 119. Patient is afebrile, heart rate 80, blood pressure 131/78, 97% room air. Patient will be discharge to rehab today. Total time taken in discharge planning greater than 35 minutes. Please see medication reconciliation for a list of current medication. Thank you for allowing us to participate in the care of this patient. The impression and plan of care has been dictated by Sakshi Mackey, Nurse Practitioner as directed. Dr. Jatinder MD I have performed a history and physical examination and medical decision making of this patient, discussed the same with the dictator, and agree with the dictators assessment and plan as written, documented as a scribe. Based on total visit time, I have performed more than 50% of this visit. Patient Condition at Discharge: Stable Plan - Discharge Summary New Discharge Prescriptions: New Heparin Sodium,Porcine [Heparin Sodium] 5,000 unit SQ Q12HR #10 each Lidocaine 5% Patch [Lidoderm 5% Patch] 1 patch TOPICAL DAILY patch Atorvastatin [Lipitor] 40 mg PO HS tab Clopidogrel [Plavix] 75 mg PO DAILY tab Aspirin 325 mg PO DAILY tab Cyanocobalamin [Vitamin B-12] 1,000 mcg PO DAILY tab Continue traMADol HCL [Ultram] 50 mg PO Q6H Cyclobenzaprine [Flexeril] 10 mg PO TID Metoprolol Succinate (ER) [Toprol XL] 25 mg PO DAILY lisinopriL [Zestril] 40 mg PO HS Discontinued Gabapentin [Neurontin] 300 mg PO BID Etodolac [Lodine] 400 mg PO BID Discharge Medication List Cyclobenzaprine [Flexeril] 10 mg PO TID 08/02/19 [History] traMADol HCL [Ultram] 50 mg PO Q6H 08/02/19 [History] Metoprolol Succinate (ER) [Toprol XL] 25 mg PO DAILY 07/17/20 [History] lisinopriL [Zestril] 40 mg PO HS 05/05/22 [History] Aspirin 325 mg PO DAILY tab 05/10/22 [Rx] Atorvastatin [Lipitor] 40 mg PO HS tab 05/10/22 [Rx] Clopidogrel [Plavix] 75 mg PO DAILY tab 05/10/22 [Rx] Cyanocobalamin [Vitamin B-12] 1,000 mcg PO DAILY tab 05/10/22 [Rx] Heparin Sodium,Porcine [Heparin Sodium] 5,000 unit SQ Q12HR #10 each 05/10/22 [Rx] Lidocaine 5% Patch [Lidoderm 5% Patch] 1 patch TOPICAL DAILY patch 05/10/22 [Rx] Follow up Appointment(s)/Referral(s): Kal Hill MD [Primary Care Provider] - 1-2 days Lonnie Serna DO [STAFF PHYSICIAN] - 1 Week Activity/Diet/Wound Care/Special Instructions: Patient will be discharge to [facility] for sub acute rehab. Dysphagia level 2 ground with nectar thick liquid and aspiration precautions Continue on aspirin 325 mg po daily and plavix 75 mg po daily for 21 days than discontinue plavix. Patient to continue on aspirin indefinitely. Patient will need to follow up with neurology on discharge. Recommend to follow up closely with primary care also. Discharge Disposition: TRANSFER TO SNF/ECF
== END 2022-05-11 16:12 | DRG 65 ==
LOC: EC 12:45 → 3SCARD 14:52
PROVIDERS: ADMIT Internal Medicine; ATTEND Internal Medicine
DX: I63.9 Cerebral infarction, unspecified (principal); G81.94 Hemiplegia, unspecified affecting left nondominant side; J98.11 Atelectasis; I48.91 Unspecified atrial fibrillation; Z20.822 Contact with and (suspected) exposure to COVID-19; Z28.310 Unvaccinated for COVID-19; R29.707 NIHSS score 7; R47.81 Slurred speech; R47.1 Dysarthria and anarthria; R13.10 Dysphagia, unspecified; I67.89 Other cerebrovascular disease; M43.12 Spondylolisthesis, cervical region; M51.34 Other intervertebral disc degeneration, thoracic region; I34.1 Nonrheumatic mitral (valve) prolapse; I34.0 Nonrheumatic mitral (valve) insufficiency; I10 Essential (primary) hypertension; M19.90 Unspecified osteoarthritis, unspecified site; Z79.891 Long term (current) use of opiate analgesic; Z79.899 Other long term (current) drug therapy; Z85.3 Personal history of malignant neoplasm of breast; Z85.828 Personal history of other malignant neoplasm of skin; W06.XXXA Fall from bed, initial encounter
CPT/HCPCS: 36415; 70450; 70496; 70498; 70553; 71045; 71046; 72125; 72170; 74230; 80048; 80053; 80061; 82607; 82747; 83036; 83605; 84443; 84484; 85025; 85610; 85730; 87040; 87635; 93005; 93306; 94760; 96361; 96365; 96366; 96375; 99291